=== PATIENT | male | born 1930 | race Caucasian/White ===

== ENCOUNTER 2020-01-31 16:27 | Inpatient (IN) ==
[2020-01-31] MEDS ORDERED: 0.9 % SODIUM CHLORIDE 1,000 ML IV ONE ×2 (16:50→18:58)
[2020-01-31] MEDS ORDERED: BENZONATATE 100 MG CAPSULE PO ONE (16:50)
--- NOTE | 2020-01-31 17:01 | Emergency Department Note ---
Fall HPI General Chief Complaint: Weakness Stated Complaint: N/v/d, weakness, fever Time Seen by Provider: 01/31/20 16:36 Source: EMS Mode of arrival: EMS History of Present Illness HPI Narrative: Narrative: 89-year-old male patient brought into the emergency department via EMS home. Patient mentions he woke up around 11 PM to use the restroom. Was standing up from bed he became dizzy and then went to ground. He does mention striking his arm and shoulder. He was immobile and unable to get himself off the floor. His niece found him on the floor around 1600 today. This equates to approximately 16-17 hours on the floor immobile. Patient does mention that he soiled himself. However his prior to calling 911. Upon arrival, patient complains of mild left shoulder pain. He was noted to be febrile ambulance. However repeat oral temperature in triage was 98.9. Patient was noted to be hypoxic by EMS. He has known COPD and is currently requiring oxygen [id number]. He is currently on 4 L of oxygen via nasal cannula. Juan F randhawa has a considerable nonproductive cough. He denies exposure. He tells me the cough is been present for many years and is unchanged. He is unsure if he hit his head or if there is loss of conscious. ROS: Denies systemic illness, fever, sweats, chills. Denies headaches, tinnitus, or vision changes. Denies runny nose or sinus congestion. Admits to shortness of breath. Denies retrosternal chest pain or palpitations. Denies abdominal pain, nausea, vomiting, or diarrhea. Denies dysuria, hematuria, urinary frequency, or urinary urgency. Admits to generalized weakness. Denies focal weakness. Related Data Home Medications Medication Instructions Recorded Confirmed albuterol sulfate 90 mcg/actuation 2 puff INHALATION .Q4-6H PRN g 01/09/20 01/09/20 aerosol inhaler budesonide-formoterol HFA 160 2 puff INHALATION BID 01/09/20 01/09/20 mcg-4.5 mcg/actuation aerosol inhaler finasteride 5 mg tablet 5 mg PO QDAY 01/09/20 01/09/20 gabapentin 400 mg capsule 400 mg PO BID 01/09/20 01/09/20 ipratropium 0.5 mg-albuterol 3 mg 3 ml INHALATION QID 01/09/20 01/09/20 (2.5 mg base)/3 mL nebulization soln levothyroxine 25 mcg tablet 25 mcg PO QDAY 01/09/20 01/09/20 tamsulosin 0.4 mg capsule 0.4 mg PO QDAY 01/09/20 01/09/20 tiotropium bromide 2.5 2 puff INHALATION QDAY 01/09/20 01/09/20 mcg/actuation mist for inhalation Allergies Allergy/AdvReac Type Severity Reaction Status Date / Time morphine Allergy Unknown Unknown Verified 01/31/20 16:28 oxycodone Allergy Unknown Unknown Verified 01/31/20 16:28 Review of Systems ROS ROS Narrative: Narrative: PFSH Narrative Patient History Narrative: Narrative: Medical/Surgical/Family History All Active Problems (Updated 01/31/20 @ 19:43 by Tyshawn Bynum PA-C) Rhabdomyolysis (Acute) Lab test positive for detection of COVID-19 virus (Acute) History of surgery (Chronic) History of total left knee replacement (Chronic ~1997) History of back surgery (Chronic) Tinnitus, bilateral (Chronic) Spinal stenosis (Chronic) Solitary lung nodule (Chronic) Sleep apnea, unspecified (Chronic) Shoulder pain (Chronic) Shortness of breath (Chronic) Sensorineural hearing loss, bilateral (Chronic) Primary osteoarthritis, unspecified site (Chronic) Peripheral vascular disease (Chronic) Hypothyroidism (Chronic) Hyperlipidemia (Chronic) History of colonoscopy (Chronic) Essential hypertension (Chronic) Diverticular disease of colon (Chronic) Chronic obstructive pulmonary disease, unspecified (Chronic) Chest pain, unspecified (Chronic) Medical History Chest pain, unspecified (Chronic) Chronic obstructive pulmonary disease, unspecified (Chronic) Diverticular disease of colon (Chronic) Essential hypertension (Chronic) Hyperlipidemia (Chronic) Hypothyroidism (Chronic) Peripheral vascular disease (Chronic) Primary osteoarthritis, unspecified site (Chronic) Sensorineural hearing loss, bilateral (Chronic) Shortness of breath (Chronic) Shoulder pain (Chronic) Sleep apnea, unspecified (Chronic) Solitary lung nodule (Chronic) Spinal stenosis (Chronic) Tinnitus, bilateral (Chronic) Surgical History History of back surgery (Chronic) x4 History of colonoscopy (Chronic) History of surgery (Chronic) 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 He is somewhat tachypneic with respiratory rate of 22. His SPO2 is anywhere to 92% on 4 L of oxygen via nasal cannula. His other vital signs are normal.) Head Head: Present normocephalic; Absent atraumatic (Some dried blood noted to right parietal area. No obvious defect or area of trauma noted.) Eye Eye: Present normal appearance, PERRL and EOMI; Absent scleral icterus and conjunctival injection ENT ENT: Present normal oropharynx and mucous membranes moist Neck Neck: Present trachea midline; Absent lymphadenopathy and thyromegaly Chest Chest: Present symmetric chest wall rise Respiratory Respiratory: Present respiratory distress, wheezes, prolonged expiratory phase and decreased breath sounds (Considerable rhonchi heard throughout the chest on exam.); Absent normal lung sounds bilaterally, rales/crackles, stridor and accessory muscle use Cardiovascular Cardiovascular: Present regular rate and normal rhythm; Absent systolic murmur and diastolic murmur Adbominal Abdominal: Present soft; Absent distention, tenderness, guarding, rebound, rigidity, organomegaly and mass Extremities Extremities: Present normal inspection, full ROM and normal capillary refill; Ab sent pedal edema Expanded Upper Extremity Shoulder: Present normal inspection and full ROM; Absent tenderness, swelling, ecchymosis, deformity, crepitus, dislocation, erythema and tenderness over AC joint Back Back: Present normal inspection and full ROM Expanded Neurological Patient oriented to: Present person, place and time Speech: Present fluid speech CRANIAL NERVES: EOM function (II, III, IV, ): Normal, facial sensation (V): Normal, facial palsy (VII): Normal, gag reflex (IX): Normal, spinal accessory function (XI): Normal and tongue deviation (XII): Normal Motor strength - LUE: 5/5 Motor strength - RUE: 5/5 Motor strength - LLE: 5/5 Motor strength - RLE: 5/5 SENSORY EXAM UPPER EXTREMITY: Normal: light touch SENSORY EXAM LOWER EXTREMITY: Normal: light touch DTR: 2+: biceps (L), biceps (R), patellar (L) and patellar (R) Coma Scale Eye Opening: Spontaneous Coma Scale Motor Response: Obeys Commands Coma Scale Verbal Response: Oriented Coma Scale Total: 15 Psychiatric Psychiatric: Present normal affect and normal mood Skin Skin: Present warm (WNL), dry and normal color Course Course Course Narrative: Patient was on the ground for extended period of time (approximate 17 hours) making his risk of rhabdomyolysis. He did have some dizziness prior to falling. I am going to order a CT scan of his head/brain without contrast. I will get radiographs of his affected left shoulder. Laboratory studies will be drawn including a CK level. I will also get an EKG. Urinalysis was also ordered. Patient was given normal saline 1000 mL bolus. I will treat his cough with benzonatate 200 mg p.o. Reevaluation(s) Reevaluation #1: A review of the patient's diagnostics show the following: CBC WBC 7.2, RBC 4.35, hemoglobin 12.9, mag 40.0, platelets 198. Lactic acid 1.1. CMP calcium 8.4, AST 72, all others normal limits. Total CK 2543. Procalcitonin 0.50. Noncontrast head CT scan read as no acute intracranial hemorrhage. Portable chest x-ray showing probable COPD but no acute or focal abnormality. After reviewing all the data I discussed these findings briefly my collaborating physician (Dr. Burns) at this time patient does have evidence of rhabdomyolysis work-up. Patient will need to be admitted to our facility for ongoing care. With this in mind I reached out to our hospitalist (Dr. London) and discussed the case with him. Time: 19:02 Reevaluation #2: At this time Dr. London mentions the patient's total CK, although elevated, is on the lower side of making the diagnosis for r habdomyolysis. He did mention that the patient will likely respond to IV fluid. He did say that the patient could be admitted for observation. However the patient wanted to be discharged home she would likely be safe to do so. Knowing this, I discussed disposition with the patient. At this time patient is feeling weak and not wanting to be discharged if possible. Afterwards, I reached back out to Dr. London and explained that the patient would like to be admitted. At this time Dr. London has consented to see the patient in admission. All further treatment decisions, modalities, and ultimate patient disposition of be carried out by Dr. London. Time: 19:36 Vital Signs Vital signs: Vital Signs Temperature 98.8 F 01/31/20 16:28 Pulse Rate 22 L 01/31/20 16:28 Respiratory Rate 96 H 01/31/20 16:28 Blood Pressure 133/71 01/31/20 16:28 Pulse Oximetry (%) 90 01/31/20 16:28 Temperature 98.8 F 01/31/20 16:28 Pulse Rate 95 H 01/31/20 20:33 Respiratory Rate 22 01/31/20 20:33 Blood Pressure 117/61 01/31/20 20:33 Pulse Oximetry (%) 94 01/31/20 20:33 MDM MDM Narrative Medical decision making narrative: Narrative: Lab Data Lab results reviewed: Yes I reviewed the patient's lab results. Result diagrams: 01/31/20 17:10 01/31/20 17:10 Labs: Lab Results 01/31/20 01/31/20 01/31/20 Range/Units 17:10 17:10 17:10 WBC 7.2 (4.5-11.0) K/mcL RBC 4.35 L (4.50-5.90) M/mcL Hgb 12.9 L (13.5-16.5) g/dL Hct 40.0 L (41.0-55.0) % MCV 92.0 (80.0-100.0) fL MCH 29.7 (26.0-34.0) pg MCHC 32.3 (31.0-36.0) g/dL RDW 13.7 (11.5-14.5) % Plt Count 198 (140-440) K/mcL MPV 9.7 (7.4-10.4) fL Neut % (Auto) 71.1 (38.0-78.0) % Lymph % (Auto) 9.2 L (15.0-49.0) % [place] % (Auto) 17.6 H (1.0-12.0) % Eos % (Auto) 1.7 (0.0-7.0) % Baso % (Auto) 0.4 (0.0-2.0) % Lymph # (Auto) 0.66 L (1.50-4.80) K/mcL [place] # (Auto) 1.26 H (0.10-0.90) K/mcL Eos # (Auto) 0.12 (0.00-0.70) K/mcL Baso # (Auto) 0.03 (0.00-0.20) K/mcL Absolute Neutrophils 5.09 (1.80-8.00) K/mcL VBG Lactic Acid (0.5-2.0) mmol/L Sodium 134 (133-145) mmol/L Potassium 4.5 (3.3-5.1) mmol/L Chloride 96 (96-108) mmol/L Carbon Dioxide 22 (22-30) mmol/L Anion Gap 16.0 (8.0-16.0) BUN 18 (8-23) mg/dL Creatinine 1.1 (0.7-1.2) mg/dL GFR Calculation 59 Glucose 95 (70-105) mg/dL Calcium 8.4 L (8.6-10.4) mg/dL Total Bilirubin 0.4 (0.1-1.0) mg/dL AST 72 H (<40) U/L ALT 20 (<40) U/L Alkaline Phosphatase 78 (39-117) U/L Total Creatine Kinase 2543 H (24-195) U/L CK-MB (CK-2) 3.3 (<6.7) ng/mL Total Protein 6.9 (5.9-8.4) gm/dL Albumin 3.6 (3.2-5.2) gm/dL Globulin 3.3 (2.2-3.7) gm/dL Albumin/Globulin Ratio 1.1 (1.0-2.3) Procalcitonin 0.51 H (<0.10) ng/mL Urine Color Urine Appearance (Clear) Urine pH (5.0-9.0) Ur Specific [place] (1.000-1.035) Urine Protein (Negative) mg/dL Urine Glucose (UA) (Negative) mg/dL Urine Ketones (Negative) mg/dL Urine Occult Blood (Negative) mg/dL Urine Nitrate (Negative) Urine Bilirubin (Negative) mg/dL Urine Urobilinogen mg/dL Ur Leukocyte Esterase (Negative) /ug Urine RBC (0-1) /hpf Urine WBC (0-4) /hpf Ur Squamous Epith Cells (0-4) /hpf Ur Transition Epith Cell (0-2) /hpf Calcium Oxalate Crystal (None) /hpf Urine Bacteria (0) /hpf Hyaline Casts (0-2) /lph Urine Mucus (None) /hpf Ur Culture Indicated? SARS-CoV-2 (PCR) Positive A (Negative) 01/31/20 01/31/20 Range/Units 17:10 18:34 WBC (4.5-11.0) K/mcL RBC (4.50-5.90) M/mcL Hgb (13.5-16.5) g/dL Hct (41.0-55.0) % MCV (80.0-100.0) fL MCH (26.0-34.0) pg MCHC (31.0-36.0) g/dL RDW (11.5-14.5) % Plt Count (140-440) K/mcL MPV (7.4-10.4) fL Neut % (Auto) (38.0-78.0) % Lymph % (Auto) (15.0-49.0) % [place] % (Auto) (1.0-12.0) % Eos % (Auto) (0.0-7.0) % Baso % (Auto) (0.0-2.0) % Lymph # (Auto) (1.50-4.80) K/mcL [place] # (Auto) (0.10-0.90) K/mcL Eos # (Auto) (0.00-0.70) K/mcL Baso # (Auto) (0.00-0.20) K/mcL Absolute Neutrophils (1.80-8.00) K/mcL VBG Lactic Acid 1.1 (0.5-2.0) mmol/L Sodium (133-145) mmol/L Potassium (3.3-5.1) mmol/L Chloride (96-108) mmol/L Carbon Dioxide (22-30) mmol/L Anion Gap (8.0-16.0) BUN (8-23) mg/dL Creatinine (0.7-1.2) mg/dL GFR Calculation Glucose (70-105) mg/dL Calcium (8.6-10.4) mg/dL Total Bilirubin (0.1-1.0) mg/dL AST (<40) U/L ALT (<40) U/L Alkaline Phosphatase (39-117) U/L Total Creatine Kinase (24-195) U/L CK-MB (CK-2) (<6.7) ng/mL Total Protein (5.9-8.4) gm/dL Albumin (3.2-5.2) gm/dL Globulin (2.2-3.7) gm/dL Albumin/Globulin Ratio (1.0-2.3) Procalcitonin (<0.10) ng/mL Urine Color Yellow Urine Appearance Clear (Clear) Urine pH 5.0 (5.0-9.0) Ur Specific [place] 1.021 (1.000-1.035) Urine Protein 30 A (Negative) mg/dL Urine Glucose (UA) Negative (Negative) mg/dL Urine Ketones 20 A (Negative) mg/dL Urine Occult Blood >=1.0 A (Negative) mg/dL Urine Nitrate Negative (Negative) Urine Bilirubin Negative (Negative) mg/dL Urine Urobilinogen Negative mg/dL Ur Leukocyte Esterase Negative (Negative) /ug Urine RBC 3 H (0-1) /hpf Urine WBC 2 (0-4) /hpf Ur Squamous Epith Cells 2 (0-4) /hpf Ur Transition Epith Cell < 1 (0-2) /hpf Calcium Oxalate Crystal Few A (None) /hpf Urine Bacteria None (0) /hpf Hyaline Casts 12 H (0-2) /lph Urine Mucus Few A (None) /hpf Ur Culture Indicated? No SARS-CoV-2 (PCR) (Negative) Radiology Data Radiology results reviewed: Yes I reviewed the patient's radiology results. Radiology results narrative: Ordering Physician: Tyshawn Bynum PA-C Date of Service: 01/31/20 Procedure(s): CT head/brain wo con Accession Number(s): [id number] INDICATION: Fall last night. Unsure if he hit head. ?LOC. COMPARISON: None. TECHNIQUE: Axial noncontrast-enhanced images through the brain. Sagittally and coronally reformatted images. FINDINGS: Cerebral hemispheres:Periventricular white matter abnormality consistent with small vessel ischemic change. Focal area of encephalomalacia in the white matter of the right frontal lobe. This is consistent with focal infarction. This is nonacute No intra-axial hemorrhage. No localized mass effect. Brainstem and cerebellum:No intra-axial abnormality Extra-axial:No acute hemorrhage. No subdural or epidural hematoma. No subarachnoid hemorrhage. Basilar cisterns are normal Calvarial:No calvarial fracture. No lytic lesion Temporal bones are negative. No destructive lesions Soft tissue, orbits, sinuses:Mild inflammatory disease within the right ethmoid sinuses and frontal sinuses. There are rounded densities consistent with retention cysts or polyps IMPRESSION: 1. No acute intracranial hemorrhage 2. 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 Ordering Physician: Tyshawn Bynum PA-C Date of Service: 01/31/20 Procedure(s): XR chest 1V portable Accession Number(s): [id number] INDICATION: dizziness, worsening cough. Hx of COPD. TECHNIQUE: AP portable upright chest x-ray COMPARISON: None FINDINGS: Lungs:Findings consistent with COPD. No focal pulmonary parenchymal infiltrate or mass. Heart, vascular:No significant cardiomegaly. Pulmonary vascularity is normal. No pulmonary edema or pulmonary congestion Mediastinum, soo:No mediastinal widening. No hilar mass Pleura:No pleural fluid. No pleural-based mass or calcification Skeletal:Negative. IMPRESSION: 1. Probable COPD 2. No acute or focal abnormality Interpreted and Authenticated by: Demond Marrero 01/31/20 EKG Data EKG #1: EKG attestation: Yes I reviewed and interpreted this EKG. EKG results narrative: Twelve-lead EKG obtained showing sinus rhythm at a rate of 90. No ST segment changes. No ectopy. Normal intervals. Discharge Plan Patient/Caregiver Discharge Instructions Pt seen by PHARMACY INNOVATION ASSISTANT/PA only: Yes Clinical Impression: Rhabdomyolysis, Chronic obstructive pulmonary disease, unspecified, Lab test positive for detection of COVID-19 virus Patient Disposition: Xfer As Outpt/Obs ([facility]) Condition: Fair Follow up with: Edwin Jones ARNP [Primary Care Provider] - Prescriptions: No Action ipratropium-albuterol 0.5 mg-3 mg(2.5 mg base)/3 mL solution for nebulization 3 ml INHALATION QID RF: 0 albuterol sulfate 90 mcg/actuation HFA aerosol inhaler 2 puff INHALATION .Q4-6H PRN (Reason: Shortness Of Breath) RF: 0 budesonide-formoterol 160-4.5 mcg/actuation HFA aerosol inhaler 2 puff INHALATION BID RF: 0 finasteride 5 mg tablet 5 mg PO QDAY RF: 0 gabapentin 400 mg capsule 400 mg PO BID RF: 0 levothyroxine 25 mcg tablet 25 mcg PO QDAY RF: 0 tamsulosin 0.4 mg capsule 0.4 mg PO QDAY RF: 0 tiotropium bromide 2.5 mcg/actuation mist 2 puff INHALATION QDAY RF: 0
--- NOTE | 2020-01-31 17:41 | XRay Report ---
INDICATION: dizziness, worsening cough. Hx of COPD. TECHNIQUE: AP portable upright chest x-ray COMPARISON: None FINDINGS: Lungs:Findings consistent with COPD. No focal pulmonary parenchymal infiltrate or mass. Heart, vascular:No significant cardiomegaly. Pulmonary vascularity is normal. No pulmonary edema or pulmonary congestion Mediastinum, soo:No mediastinal widening. No hilar mass Pleura:No pleural fluid. No pleural-based mass or calcification Skeletal:Negative. IMPRESSION: 1. Probable COPD 2. No acute or focal abnormality Interpreted and Authenticated by: Demond Marrero 01/31/20
--- NOTE | 2020-01-31 17:44 | Cat Scan Report ---
INDICATION: Fall last night. Unsure if he hit head. ?LOC. COMPARISON: None. TECHNIQUE: Axial noncontrast-enhanced images through the brain. Sagittally and coronally reformatted images. FINDINGS: Cerebral hemispheres:Periventricular white matter abnormality consistent with small vessel ischemic change. Focal area of encephalomalacia in the white matter of the right frontal lobe. This is consistent with focal infarction. This is nonacute No intra-axial hemorrhage. No localized mass effect. Brainstem and cerebellum:No intra-axial abnormality Extra-axial:No acute hemorrhage. No subdural or epidural hematoma. No subarachnoid hemorrhage. Basilar cisterns are normal Calvarial:No calvarial fracture. No lytic lesion Temporal bones are negative. No destructive lesions Soft tissue, orbits, sinuses:Mild inflammatory disease within the right ethmoid sinuses and frontal sinuses. There are rounded densities consistent with retention cysts or polyps IMPRESSION: 1. No acute intracranial hemorrhage 2. 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 Interpreted and Authenticated by: Demond Marrero 01/31/20
[2020-01-31 17:58] LABS: COVID-19 (RAPID/ABBOTT) Positive (Negative)
[2020-01-31 17:59] LABS: Basophils # (Auto) 0.03 K/mcL (0.00-0.20); Basophils % (Auto) 0.4 % (0.0-2.0); Eosinophils # (Auto) 0.12 K/mcL (0.00-0.70); Eosinophils % (Auto) 1.7 % (0.0-7.0); Hemoglobin 12.9 g/dL (13.5-16.5); Lymphocytes # (Auto) 0.66 K/mcL (1.50-4.80); Lymphocytes % (Auto) 9.2 % (15.0-49.0); Mean Corpuscular HGB Conc 32.3 g/dL (31.0-36.0); Mean Platelet Volume 9.7 fL (7.4-10.4); Monocytes # (Auto) 1.26 K/mcL (0.10-0.90); Monocytes % (Auto) 17.6 % (1.0-12.0); Neutrophils % (Auto) 71.1 % (38.0-78.0); Platelet Count 198 K/mcL (140-440); RBC 4.35 M/mcL (4.50-5.90); Red Cell Distribution Width 13.7 % (11.5-14.5); WBC 7.2 K/mcL (4.5-11.0)
[2020-01-31 18:22] LABS: ALT/SGPT 20 U/L (<40); AST/SGOT 72 U/L (<40); Albumin 3.6 gm/dL (3.2-5.2); Albumin/Globulin Ratio 1.1 (1.0-2.3); Alkaline Phosphatase 78 U/L (39-117); Bilirubin,Total 0.4 mg/dL (0.1-1.0); Blood Urea Nitrogen 18 mg/dL (8-23); Calcium 8.4 mg/dL (8.6-10.4); Carbon Dioxide 22 mmol/L (22-30); Chloride 96 mmol/L (96-108); Globulin 3.3 gm/dL (2.2-3.7); Glomerular Filtration Rate 59; Glucose 95 mg/dL (70-105)
[2020-01-31 18:28] LABS: Procalcitonin 0.51 ng/mL (<0.10)
[2020-01-31 18:35] LABS: Creatine Kinase 2543 U/L (24-195); Creatine Kinase MB 3.3 ng/mL (<6.7)
[2020-01-31 19:37] LABS: Appearance,Urine CLEAR (Clear); Bilirubin,Urine Negative (Negative); Calcium Oxalate Crystals,Urine FEW /hpf; Color,Urine YELLOW; Culture Indicated,Urine No; Glucose,Urine (UA) Negative (Negative); Ketones,Urine 20 mg/dL (Negative); Leukocyte Esterase,Urine Negative /ug (Negative); Mucus,Urine FEW /hpf; Nitrate,Urine Negative (Negative); Protein,Urine 30 mg/dL (Negative); Specific Gravity,Urine 1.021 (1.000-1.035); Urine Blood >=1.0 mg/dL (Negative); Urine Hyaline Cast 12 /lph (0-2); Urine RBC 3 /hpf (0-1); Urine Squamous Epithelial Cell 2 /hpf (0-4); Urine Transitional Epi Cells < 1 /hpf (0-2); Urine WBC 2 /hpf (0-4); Urobilinogen,Urine Negative
--- NOTE | 2020-01-31 19:41 | Internal Med History&Physical ---
HPI History of Present Illness Patient information: Note initiated : 01/31/20 at 7:41 pm Service Date, if different from initiated Date: [] Patient: Mathieu Tang a 89 y/o M admitted on for N/v/d, weakness, fever. Chief Complaint: Weakness fall and unable to get up for 18 hours History of present illness: Mr. Tang is a 89 year old M with a history of O2 dependent COPD/neuropathy/BPH and hypothyroidism who lives fairly independently at [place]. The last couple of days patient has been feeling weak. He fell yesterday after he was trying to get to the bathroom got dizzy and landed on the floor. He remained on the floor liters profound weakness and laid there for 17 hours until he was discovered by his niece. He denies thunderclap headache/chest palpitation endorses dizziness lightheadedness. He denies loss of consciousness or incontinence. Endorses to generalized body aches but denies fever. Patient work-up in the ER was consistent with rhabdomyolysis with CK over 2500 and mild EDVIN with creatinine 1.1. Patient was started on crystalloids. He also tested positive for Covid but chest x-ray was negative for acute process Subsequently hospital service was consulted for admission in light of profound weakness/acute viral COVID-19 syndrome/rhabdomyolysis. At the time of my evaluation patient is alert and oriented. He denies active distress. He denies pain but complains of frequent coughing which is consistent with his COPD. He denies diarrhea, dysuria, joint swelling or rash Review of systems 10 point review system was performed and is negative except for ones cussed above PFSH PFSH All Active Problems (Updated 01/31/20 @ 19:43 by Tyshawn Bynum PA-C) Rhabdomyolysis (Acute) Lab test positive for detection of COVID-19 virus (Acute) History of surgery (Chronic) History of total left knee replacement (Chronic ~1997) History of back surgery (Chronic) Tinnitus, bilateral (Chronic) Spinal stenosis (Chronic) Solitary lung nodule (Chronic) Sleep apnea, unspecified (Chronic) Shoulder pain (Chronic) Shortness of breath (Chronic) Sensorineural hearing loss, bilateral (Chronic) Primary osteoarthritis, unspecified site (Chronic) Peripheral vascular disease (Chronic) Hypothyroidism (Chronic) Hyperlipidemia (Chronic) History of colonoscopy (Chronic) Essential hypertension (Chronic) Diverticular disease of colon (Chronic) Chronic obstructive pulmonary disease, unspecified (Chronic) Chest pain, unspecified (Chronic) Medical History Chest pain, unspecified (Chronic) Chronic obstructive pulmonary disease, unspecified (Chronic) Diverticular disease of colon (Chronic) Essential hypertension (Chronic) Hyperlipidemia (Chronic) Hypothyroidism (Chronic) Peripheral vascular disease (Chronic) Primary osteoarthritis, unspecified site (Chronic) Sensorineural hearing loss, bilateral (Chronic) Shortness of breath (Chronic) Shoulder pain (Chronic) Sleep apnea, unspecified (Chronic) Solitary lung nodule (Chronic) Spinal stenosis (Chronic) Tinnitus, bilateral (Chronic) Surgical History History of back surgery (Chronic) x4 History of colonoscopy (Chronic) History of surgery (Chronic) 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) Family History Father Congestive heart failure Brother Cancer of kidney Social History (Updated 01/09/20 @ 20:08 by Elsi Portillo) marital status: service: Yes occupational status: retired occupation: Construction smoking status: Former smoker alcohol intake frequency: a few times a month MEDS/ALLERGIES Home Medications and Allergies Home Medications Medication Instructions Recorded Confirmed Type albuterol sulfate 90 mcg/actuation 2 puff INHALATION .Q4-6H PRN g 01/09/20 01/31/20 History aerosol inhaler budesonide-formoterol HFA 160 2 puff INHALATION BID 01/09/20 01/31/20 History mcg-4.5 mcg/actuation aerosol inhaler finasteride 5 mg tablet 5 mg PO QDAY 01/09/20 01/31/20 History gabapentin 400 mg capsule 400 mg PO BID 01/09/20 01/31/20 History ipratropium 0.5 mg-albuterol 3 mg 3 ml INHALATION QID 01/09/20 01/31/20 History (2.5 mg base)/3 mL nebulization soln levothyroxine 25 mcg tablet 25 mcg PO QDAY 01/09/20 01/31/20 History tamsulosin 0.4 mg capsule 0.4 mg PO QDAY 01/09/20 01/31/20 History tiotropium bromide 2.5 2 puff INHALATION QDAY 01/09/20 01/31/20 History mcg/actuation mist for inhalation Allergies Allergy/AdvReac Type Severity Reaction Status Date / Time oxycodone Allergy Intermediate Confusion Verified 01/31/20 23:38 morphine Allergy Mild Hives Verified 01/31/20 23:38 EXAM Constitutional Vitals: Temp Pulse Resp BP Pulse Ox 98.8 F 95 H 19 121/80 89 L 01/31/20 16:28 01/31/20 19:32 01/31/20 19:32 01/31/20 19:32 01/31/20 19:32 Anxious but alert Head normocephalic Oral cavity moist No ear nose discharge Eye movement symmetrical Neck supple no lymphadenopathy S1-S2 regular ESM grade 1 Minimally labored breathing on 2 L oxygen Nondistended nontender abdomen Lower extremity no cyanosis clubbing or joint swelling Skin no suspicious lesion Psych no hallucination Neuro normal higher function, symmetrical strength DATA Data Completed and Pending Labs: Labs from last 24 hours 01/31/20 01/31/20 01/31/20 18:34 17:10 17:10 WBC RBC Hgb Hct MCV MCH MCHC RDW Plt Count MPV Neut % (Auto) Lymph % (Auto) [place] % (Auto) Eos % (Auto) Baso % (Auto) Lymph # (Auto) [place] # (Auto) Eos # (Auto) Baso # (Auto) Absolute Neutrophils VBG Lactic Acid 1.1 Sodium Potassium Chloride Carbon Dioxide Anion Gap BUN Creatinine GFR Calculation Glucose Calcium Total Bilirubin AST ALT Alkaline Phosphatase Total Creatine Kinase CK-MB (CK-2) Total Protein Albumin Globulin Albumin/Globulin Ratio Procalcitonin 0.51 H Urine Color Yellow Urine Appearance Clear Urine pH 5.0 Ur Specific [place] 1.021 Urine Protein 30 A Urine Glucose (UA) Negative Urine Ketones 20 A Urine Occult Blood >=1.0 A Urine Nitrate Negative Urine Bilirubin Negative Urine Urobilinogen Negative Ur Leukocyte Esterase Negative Urine RBC 3 H Urine WBC 2 Ur Squamous Epith Cells 2 Ur Transition Epith Cell < 1 Calcium Oxalate Crystal Few A Urine Bacteria None Hyaline Casts 12 H Urine Mucus Few A Ur Culture Indicated? No SARS-CoV-2 (PCR) Positive A 01/31/20 01/31/20 17:10 17:10 WBC 7.2 RBC 4.35 L Hgb 12.9 L Hct 40.0 L MCV 92.0 MCH 29.7 MCHC 32.3 RDW 13.7 Plt Count 198 MPV 9.7 Neut % (Auto) 71.1 Lymph % (Auto) 9.2 L [place] % (Auto) 17.6 H Eos % (Auto) 1.7 Baso % (Auto) 0.4 Lymph # (Auto) 0.66 L [place] # (Auto) 1.26 H Eos # (Auto) 0.12 Baso # (Auto) 0.03 Absolute Neutrophils 5.09 VBG Lactic Acid Sodium 134 Potassium 4.5 Chloride 96 Carbon Dioxide 22 Anion Gap 16.0 BUN 18 Creatinine 1.1 GFR Calculation 59 Glucose 95 Calcium 8.4 L Total Bilirubin 0.4 AST 72 H ALT 20 Alkaline Phosphatase 78 Total Creatine Kinase 2543 H CK-MB (CK-2) 3.3 Total Protein 6.9 Albumin 3.6 Globulin 3.3 Albumin/Globulin Ratio 1.1 Procalcitonin Urine Color Urine Appearance Urine pH Ur Specific [place] Urine Protein Urine Glucose (UA) Urine Ketones Urine Occult Blood Urine Nitrate Urine Bilirubin Urine Urobilinogen Ur Leukocyte Esterase Urine RBC Urine WBC Ur Squamous Epith Cells Ur Transition Epith Cell Calcium Oxalate Crystal Urine Bacteria Hyaline Casts Urine Mucus Ur Culture Indicated? SARS-CoV-2 (PCR) A/P Narrative A/P Narrative: * Rhabdomyoslysis secondary to fall. Continue crystalloid/CK follow-up/monitor renal function/electrolytes. * COVID -19 Acute Viral Syndrome with weakness. Monitor for worsening hypoxemia, follow inflammatory markers * Fall secondary to acute viral syndrome from Covid. Continue therapy/nutrition support/gait and safety eval * History of COPD at baseline. On 2 L oxygen, continue bronchodilators. * Neuropathy can to gabapentin * BPH continue tamsulosin * Hypothyroidism continue thyroxine * Full code * Prophylaxis heparin Plan * Observation admit * Supportive management * Dexamethasone, remdesivir if worsening hypoxemia * Crystalloids/CK levels * Monitor renal function/electrolytes * Pre-existing medical condition management home meds * Nutrition support/therapies Time Spent With Patient Time: Total time spent is greater than 50% in coordination of care (as documented) at patient's floor/unit and/or counseling patient:
[2020-01-31] MEDS ORDERED: POTASSIUM CHLORIDE 20 MEQ PACKET PO PRN (21:15)
[2020-01-31] MEDS ORDERED: POTASSIUM CHLORIDE 40 MEQ in DEXTROSE 5% IN WATER 500 ML IV PRN (21:15)
[2020-01-31] MEDS ORDERED: METOPROLOL TARTRATE 5 MG/5 ML VIAL IV PRN (21:15)
[2020-01-31] MEDS ORDERED: BISACODYL 10 MG SUPP.RECT PR PRN (21:15)
[2020-01-31] MEDS ORDERED: POLYETHYLENE GLYCOL 3350 17 GM PACKET PO PRN (21:15)
[2020-01-31] MEDS ORDERED: ACETAMINOPHEN 650 MG/65 ML BAG IV PRN (21:15)
[2020-01-31] MEDS ORDERED: hydrALAZINE 20 MG/ML VIAL IV PRN (21:15)
[2020-01-31] MEDS ORDERED: BUDESONIDE FORMOTEROL INHALATION SCH (21:15)
[2020-01-31] MEDS ORDERED: ONDANSETRON 4 MG/2 ML VIAL IV PRN (21:15)
[2020-01-31] MEDS ORDERED: ONDANSETRON 4 MG ODT TABLET SL PRN (21:15)
[2020-01-31] MEDS ORDERED: MAGNESIUM SULFATE 2 GM/50 ML BAG IV PRN (21:15)
[2020-01-31] MEDS: 0.9 % SODIUM CHLORIDE 1,000 ML IV SCH (21:35)
[2020-01-31] MEDS: 0.9 % SODIUM CHLORIDE 10 ML SYRINGE IV SCH (21:49)
[2020-01-31] MEDS ORDERED: IPRATROPIUM/ALBUTEROL 3 ML AMPUL.NEB NEB ONE (21:49)
[2020-01-31] MEDS: IPRATROPIUM/ALBUTEROL 3 ML AMPUL.NEB NEB SCH (21:51)
[2020-01-31] MEDS: cefTRIAXone 2 GM in DEXTROSE 5% IN WATER 50 ML IV SCH (22:40)
[2020-01-31] MEDS: MELATONIN 3 MG TABLET PO PRN (22:43)
[2020-01-31] MEDS: CYANOCOBALAMIN (VITAMIN B-12) 500 MCG TABLET PO SCH (22:43)
[2020-01-31] MEDS: SENNOSIDES/DOCUSATE SODIUM 1 TAB TABLET PO SCH (22:43)
[2020-01-31] MEDS: GABAPENTIN 400 MG CAPSULE PO SCH (22:43)
[2020-01-31] MEDS: HEPARIN 5,000 UNIT/ML VIAL SQ SCH (22:44)
[2020-01-31] MEDS: DOCUSATE SODIUM 100 MG CAPSULE PO SCH (22:44)
[2020-01-31 23:26] LABS: Creatine Kinase 2859 U/L (24-195)
[2020-02-01] MEDS: 0.9 % SODIUM CHLORIDE 10 ML SYRINGE IV SCH ×3 (06:09→22:32)
[2020-02-01 06:24] LABS: Basophils # (Auto) 0.02 K/mcL (0.00-0.20); Basophils % (Auto) 0.3 % (0.0-2.0); Eosinophils # (Auto) 0 K/mcL (0.00-0.70); Eosinophils % (Auto) 0 % (0.0-7.0); Hematocrit 37.2 % (41.0-55.0); Hemoglobin 11.7 g/dL (13.5-16.5); Lymphocytes # (Auto) 0.78 K/mcL (1.50-4.80); Mean Cell Volume 93.9 fL (80.0-100.0); Mean Corpuscular HGB Conc 31.5 g/dL (31.0-36.0); Mean Platelet Volume 9.9 fL (7.4-10.4); Monocytes # (Auto) 0.87 K/mcL (0.10-0.90); Monocytes % (Auto) 14.5 % (1.0-12.0); Neutrophils % (Auto) 72.2 % (38.0-78.0); Platelet Count 162 K/mcL (140-440); RBC 3.96 M/mcL (4.50-5.90); Red Cell Distribution Width 13.8 % (11.5-14.5)
[2020-02-01] MEDS: IPRATROPIUM/ALBUTEROL 3 ML AMPUL.NEB NEB SCH ×6 (06:25→23:44)
[2020-02-01] MEDS: LEVOTHYROXINE 25 MCG TABLET PO SCH (07:09)
[2020-02-01 07:13] LABS: ALT/SGPT 25 U/L (<40); AST/SGOT 104 U/L (<40); Albumin 3.3 gm/dL (3.2-5.2); Albumin/Globulin Ratio 1.1 (1.0-2.3); Alkaline Phosphatase 67 U/L (39-117); Bilirubin,Direct < 0.2 mg/dL (<0.3); Bilirubin,Total 0.2 mg/dL (0.1-1.0); Blood Urea Nitrogen 17 mg/dL (8-23); Carbon Dioxide 26 mmol/L (22-30); Chloride 97 mmol/L (96-108); Glomerular Filtration Rate 67; Glucose 75 mg/dL (70-105); Lactate Dehydrogenase 297 U/L (135-225); Triglycerides 54 mg/dL (<150)
[2020-02-01 07:36] LABS: Creatine Kinase 2894 U/L (24-195)
[2020-02-01] MEDS: MULTIVIT,THER IRON,CA,FA & MIN 1 TABLET PO SCH (08:22)
[2020-02-01] MEDS: ACETAMINOPHEN 325 MG TABLET PO PRN ×2 (08:22→21:21)
[2020-02-01] MEDS: CYANOCOBALAMIN (VITAMIN B-12) 500 MCG TABLET PO SCH ×2 (08:22→21:21)
[2020-02-01] MEDS: FINASTERIDE 5 MG TABLET PO SCH (08:23)
[2020-02-01] MEDS: DEXAMETHASONE 4 MG TABLET PO SCH (08:23)
[2020-02-01] MEDS: GABAPENTIN 400 MG CAPSULE PO SCH ×2 (08:23→21:20)
[2020-02-01] MEDS: TAMSULOSIN 0.4 MG CAPSULE PO SCH (08:23)
[2020-02-01] MEDS: HEPARIN 5,000 UNIT/ML VIAL SQ SCH ×2 (08:24→21:18)
[2020-02-01] MEDS: DOCUSATE SODIUM 100 MG CAPSULE PO SCH ×2 (08:24→21:20)
--- NOTE | 2020-02-01 09:14 | Internal Med Progress Note ---
SUBJECTIVE Subjective Patient information: Note initiated : 02/01/20 at 9:10 am Service Date, if different from initiated Date: [] Patient: Mathieu Tang 89 y/o M admitted on 01/31/20 for N/v/d, weakness, fever. Chief Complaint: History of present illness: Mr. Tang is a 89 year old M with a history of O2 dependent COPD/neuropathy/BPH and hypothyroidism who lives fairly independently at [place]. The last couple of days patient has been feeling weak. He fell yesterday after he was trying to get to the bathroom got dizzy and landed on the floor. He remained on the floor liters profound weakness and laid there for 17 hours until he was discovered by his niece. He denies thunderclap headache/chest palpitation endorses dizziness lightheadedness. He denies loss of consciousness or incontinence. Endorses to generalized body aches but denies fever. Patient work-up in the ER was consistent with rhabdomyolysis with CK over 2500 and mild EDVIN with creatinine 1.1. Patient was started on crystalloids. He also tested positive for Covid but chest x-ray was negative for acute process Subsequently hospital service was consulted for admission in light of profound weakness/acute viral COVID-19 syndrome/rhabdomyolysis. At the time of my evaluation patient is alert and oriented. He denies active distress. He denies pain but complains of frequent coughing which is consistent with his COPD. He denies diarrhea, dysuria, joint swelling or rash 01/31-patient does not feel well this morning. Overnight febrile. T-max 101. Started on remdesivir. Repeat chest imaging. CK plateaued at 2894, CRP 10. Continue dexamethasone. Supplemental oxygen. COVID-19 precautions. Constitutional Vitals: Vital Signs Temp Pulse Resp BP Pulse Ox 100.5 F H 86 22 135/66 96 02/01/20 09:07 02/01/20 07:00 02/01/20 07:16 02/01/20 07:00 02/01/20 07:16 Period Temp Pulse Resp BP Sys/[place] Pulse Ox Last 24 Hr 98.8 F-100.5 F 22-102 12-96 93-135/49-99 89-100 Intake and Output 01/31/20 02/01/20 02/01/20 21:59 05:59 13:59 Intake Total 1999 290 Output Total 350 Balance 1999 Weight 76.204 kg alert oriented No anxiety On 2 L oxygen Minimal labored breathing Intake & Output: Intake & Output 01/31/20 02/01/20 02/01/20 21:59 05:59 13:59 Intake Total 1999 290 Output Total 350 Balance 1999 Weight 76.204 kg Intake: IV 1999 50 Sodium Chloride 0.9% 1,000 ml @ 2000 Wide Open IV BOLUS ONE Rx#: [id number] Rocephin 2 gm In Dextrose 5% in 50 Water 50 ml @ 100 mls/hr IV Q24H [facility] Rx#:[id number] Oral 240 Output: Void Amount 350 Other: Urine Appearance Clear Clear Urine Color Dark Yellow Straw Urine Odor Strong Normal OBJ DATA Labs CBC & Chem 7: 02/01/20 05:34 02/01/20 05:34 Labs: Abnormal Lab Results 02/01/20 02/01/20 02/01/20 05:34 05:34 05:34 RBC 3.96 L Hgb 11.7 L Hct 37.2 L Lymph % (Auto) 13.0 L [place] % (Auto) 14.5 H Lymph # (Auto) 0.78 L [place] # (Auto) D-Dimer 1.45 H Sodium 132 L Calcium 8.0 L AST 104 H Lactate Dehydrogenase 297 H Total Creatine Kinase 2894 H C-Reactive Protein 10.00 H Procalcitonin Urine Protein Urine Ketones Urine Occult Blood Urine RBC Calcium Oxalate Crystal Hyaline Casts Urine Mucus SARS-CoV-2 (PCR) 01/31/20 01/31/20 01/31/20 21:41 18:34 17:10 RBC Hgb Hct Lymph % (Auto) [place] % (Auto) Lymph # (Auto) [place] # (Auto) D-Dimer Sodium Calcium AST Lactate Dehydrogenase Total Creatine Kinase 2859 H C-Reactive Protein Procalcitonin 0.51 H Urine Protein 30 A Urine Ketones 20 A Urine Occult Blood >=1.0 A Urine RBC 3 H Calcium Oxalate Crystal Few A Hyaline Casts 12 H Urine Mucus Few A SARS-CoV-2 (PCR) Positive A 01/31/20 01/31/20 17:10 17:10 RBC 4.35 L Hgb 12.9 L Hct 40.0 L Lymph % (Auto) 9.2 L [place] % (Auto) 17.6 H Lymph # (Auto) 0.66 L [place] # (Auto) 1.26 H D-Dimer Sodium Calcium 8.4 L AST 72 H Lactate Dehydrogenase Total Creatine Kinase 2543 H C-Reactive Protein Procalcitonin Urine Protein Urine Ketones Urine Occult Blood Urine RBC Calcium Oxalate Crystal Hyaline Casts Urine Mucus SARS-CoV-2 (PCR) Meds: Medications Acetaminophen (Tylenol) 650 mg PO Q4-6HP PRN; Protocol PRN Reason: Per Pain Protocol/Fever > 101 Last Admin: 02/01/20 08:22 Dose: 650 mg Documented by: Albuterol Sulfate (Ventolin) 2 puff INH Q4-6HP PRN PRN Reason: Shortness Of Breath Albuterol/Ipratropium (Duoneb) 3 ml NEB QID [facility] Last Admin: 02/01/20 07:42 Dose: Not Given Documented by: Bisacodyl (Dulcolax) 10 mg [place] Q2-3DAYS PRN PRN Reason: Constipation Cyanocobalamin (Vitamin B-12) 1,000 mcg PO BID [facility] Stop: 02/05/20 09:01 Last Admin: 02/01/20 08:22 Dose: 1,000 mcg Documented by: Dexamethasone (Decadron) 6 mg PO DAILY [facility] Last Admin: 02/01/20 08:23 Dose: 6 mg Documented by: Docusate Sodium (Colace) 100 mg PO BID [facility] Last Admin: 02/01/20 08:24 Dose: 100 mg Documented by: Finasteride (Proscar) 5 mg PO QDAY [facility] Last Admin: 02/01/20 08:23 Dose: 5 mg Documented by: Gabapentin (Neurontin) 400 mg PO BID [facility] Last Admin: 02/01/20 08:23 Dose: 400 mg Documented by: Heparin Sodium (Porcine) (Heparin) 5,000 unit SQ Q12 [facility] Last Admin: 02/01/20 08:24 Dose: 5,000 unit Documented by: Hydralazine HCl (Apresoline) 10 mg IV Q4-6HP PRN PRN Reason: Hypertension Potassium Chloride 40 meq/ (Dextrose) 520 mls @ 130 mls/hr IV UD PRN PRN Reason: K+ = or < 3.5 Acetaminophen (Ofirmev) 650 mg in 65 mls @ 130 mls/hr IV Q6HP PRN; Protocol PRN Reason: Per Pain Protocol/Fever > 101 Magnesium Sulfate (Magnesium Sulfate) 2 gm in 50 mls @ 50 mls/hr IV UD PRN PRN Reason: MG = or < 1.7 Ceftriaxone Sodium 2 gm/ (Dextrose) 50 mls @ 100 mls/hr IV Q24H [facility]; Protocol Last Infusion: 01/31/20 23:15 Dose: Infused Documented by: Sodium Chloride (Sodium Chloride 0.9%) 1,000 mls @ 50 mls/hr IV .Q20H [facility] Stop: 02/03/20 09:14 Last Admin: 01/31/20 21:35 Dose: 50 mls/hr Documented by: REMDESIVIR 200 mg/ Sodium (Chloride) 250 mls @ 500 mls/hr IV ONCE ONE Stop: 02/01/20 10:29 REMDESIVIR 100 mg/ Sodium (Chloride) 250 mls @ 500 mls/hr IV DAILY@1000 [place]IMBERLY Stop: 02/05/20 10:29 Iron Carb/Multivit/[place]/Folic Acid (Multivitamin W/Minerals) 1 tab PO DAILY [facility] Last Admin: 02/01/20 08:22 Dose: 1 tab Documented by: Levothyroxine Sodium (Synthroid) 25 mcg PO QAMAC [facility] Last Admin: 02/01/20 07:09 Dose: 25 mcg Documented by: Melatonin (Melatonin 3mg Tablet) 3 mg PO HSP PRN PRN Reason: Insomnia Last Admin: 01/31/20 22:43 Dose: 3 mg Documented by: Metoprolol Tartrate (Lopressor) 5 mg IV Q5M PRN PRN Reason: Heart Rate > 140 bpm Ondansetron HCl (Zofran Odt) 4 mg SL Q4-6HP PRN; Protocol PRN Reason: Nausea And Vomiting Ondansetron HCl (Zofran) 4 mg IV Q4-6HP PRN; Protocol PRN Reason: Nausea And Vomiting Tiotropium [place] (Respimat Inhaler) 2 dose INH QDAY [facility] Budesonide- (Formoterol Inhaler) 2 dose INH BID [facility] Polyethylene Glycol (Miralax) 17 gm PO DAILYP PRN PRN Reason: Constipation Potassium Chloride (Klor-Con) 40 meq PO DAILYP PRN PRN Reason: K+ < 3.5 Senna/Docusate Sodium (Senna Plus Tablet) 1 tab PO HS [facility] Last Admin: 01/31/20 22:43 Dose: 1 tab Documented by: Sodium Chloride (Saline Flush) 10 ml IV Q8 [facility] Last Admin: 02/01/20 06:09 Dose: Not Given Documented by: Tamsulosin HCl (Flomax) 0.4 mg PO QDAY [facility] Last Admin: 02/01/20 08:23 Dose: 0.4 mg Documented by: A/P Narrative A/P Narrative: * Rhabdomyoslysis secondary to fall. CK improving. Renal function stable. Continue crystalloids * COVID -19 Acute Viral Syndrome with weakness. Febrile along with worsening weakness. Repeat chest imaging. Start remdesivir's, continue dexamethasone. * Fall secondary to acute viral syndrome/weakness from Covid. Continue therapy/nutrition support/gait and safety eval * History of COPD at baseline. Continue bronchodilators/oxygen * Neuropathy continue home dose gabapentin * BPH on tamsulosin * Hypothyroidism continue thyroxine * Full code * Prophylaxis heparin Plan * Start remdesivir * Repeat imaging, check ABG if worsening hypoxemia * Continue crystalloids * Dexamethasone * Monitor renal function/electrolytes * Pre-existing medical condition management home meds * Nutrition support/therapies Time Spent With Patient Time: Total time spent is greater than 50% in coordination of care (as documented) at patient's floor/unit and/or counseling patient: QUALITY Stroke Symptom Onset Unknown: No VTE Deep Vein Thrombosis/Pulmonary Embolism Present on Admission: No
--- NOTE | 2020-02-01 09:37 | XRay Report ---
INDICATION: SOB fever TECHNIQUE: AP portable semiupright chest x-ray COMPARISON: None FINDINGS: Lungs:Mild bibasilar pulmonary parenchymal density, left worse than right. Small focal area of pneumonia is possible. Follow-up radiographs recommended. Mid and upper lungs are negative Heart, vascular:No significant cardiomegaly. Pulmonary vascularity is normal. No pulmonary edema or pulmonary congestion Mediastinum, soo:No mediastinal widening. No hilar mass Pleura:No pleural fluid. No pleural-based mass or calcification Skeletal:Negative. IMPRESSION: 1. Mild bibasilar infiltrate 2. Otherwise negative chest x-ray Interpreted and Authenticated by: Demond Marrero 02/01/20
[2020-02-01] MEDS: BUDESONIDE FORMOTEROL INH SCH ×2 (09:50→21:24)
[2020-02-01] MEDS: TIOTROPIUM BROMIDE RESPIMAT INH SCH (09:50)
[2020-02-01] MEDS ORDERED: REMDESIVIR 200 MG in 0.9 % SODIUM CHLORIDE 250 ML IV ONE (10:00)
[2020-02-01] MEDS: ALBUTEROL SULFATE 200 PUFF INHALER INH PRN ×2 (14:35→16:27)
[2020-02-01] MEDS: cefTRIAXone 2 GM in DEXTROSE 5% IN WATER 50 ML IV SCH (14:35)
[2020-02-01] MEDS: METHOCARBAMOL 750 MG TABLET PO PRN (16:27)
[2020-02-01] MEDS: 0.9 % SODIUM CHLORIDE 1,000 ML IV SCH ×2 (16:31→19:00)
[2020-02-01] MEDS: SENNOSIDES/DOCUSATE SODIUM 1 TAB TABLET PO SCH (21:20)
[2020-02-02] MEDS: MELATONIN 3 MG TABLET PO PRN (00:20)
[2020-02-02] MEDS: METHOCARBAMOL 750 MG TABLET PO PRN (03:34)
[2020-02-02] MEDS: 0.9 % SODIUM CHLORIDE 10 ML SYRINGE IV SCH ×3 (05:19→22:05)
[2020-02-02 07:14] LABS: Basophils # (Auto) 0 K/mcL (0.00-0.20); Basophils % (Auto) 0 % (0.0-2.0); Eosinophils # (Auto) 0 K/mcL (0.00-0.70); Eosinophils % (Auto) 0 % (0.0-7.0); Lymphocytes # (Auto) 0.38 K/mcL (1.50-4.80); Lymphocytes % (Auto) 8.7 % (15.0-49.0); Mean Cell Volume 90.2 fL (80.0-100.0); Mean Corpuscular HGB Conc 32.4 g/dL (31.0-36.0); Mean Platelet Volume 10.5 fL (7.4-10.4); Monocytes # (Auto) 0.58 K/mcL (0.10-0.90); Monocytes % (Auto) 13.2 % (1.0-12.0); Neutrophils % (Auto) 78.1 % (38.0-78.0); Platelet Count 147 K/mcL (140-440); RBC 3.77 M/mcL (4.50-5.90); Red Cell Distribution Width 13.3 % (11.5-14.5); WBC 4.4 K/mcL (4.5-11.0)
[2020-02-02] MEDS: LEVOTHYROXINE 25 MCG TABLET PO SCH (07:32)
[2020-02-02] MEDS: FINASTERIDE 5 MG TABLET PO SCH (08:16)
[2020-02-02] MEDS: DEXAMETHASONE 4 MG TABLET PO SCH (08:16)
[2020-02-02] MEDS: DOCUSATE SODIUM 100 MG CAPSULE PO SCH ×2 (08:16→22:15)
[2020-02-02] MEDS: GABAPENTIN 400 MG CAPSULE PO SCH ×2 (08:16→22:15)
[2020-02-02] MEDS: MULTIVIT,THER IRON,CA,FA & MIN 1 TABLET PO SCH (08:16)
[2020-02-02] MEDS: cefTRIAXone 2 GM in DEXTROSE 5% IN WATER 50 ML IV SCH (08:17)
[2020-02-02] MEDS: BUDESONIDE FORMOTEROL INH SCH ×2 (08:17→22:20)
[2020-02-02] MEDS: TIOTROPIUM BROMIDE RESPIMAT INH SCH (08:17)
[2020-02-02] MEDS: HEPARIN 5,000 UNIT/ML VIAL SQ SCH ×2 (08:17→22:15)
[2020-02-02 08:18] LABS: ALT/SGPT 30 U/L (<40); AST/SGOT 90 U/L (<40); Albumin 3.1 gm/dL (3.2-5.2); Albumin/Globulin Ratio 1.1 (1.0-2.3); Alkaline Phosphatase 58 U/L (39-117); Bilirubin,Direct < 0.2 mg/dL (<0.3); Bilirubin,Total 0.2 mg/dL (0.1-1.0); Blood Urea Nitrogen 22 mg/dL (8-23); Calcium 8.1 mg/dL (8.6-10.4); Carbon Dioxide 26 mmol/L (22-30); Chloride 98 mmol/L (96-108); Globulin 2.8 gm/dL (2.2-3.7); Glomerular Filtration Rate 79; Glucose 128 mg/dL (70-105); Lactate Dehydrogenase 265 U/L (135-225); Phosphorous 2.9 mg/dL (2.5-4.5); Triglycerides 41 mg/dL (<150); Uric Acid 4.6 mg/dL (2.5-8.0)
--- NOTE | 2020-02-02 08:40 | XRay Report ---
INDICATION: Interval Change TECHNIQUE: AP portable upright chest x-ray COMPARISON: Previous chest x-rays dated 02/01/2020 and 01/31/2020 FINDINGS: Lungs:Lungs are negative. No focal pulmonary parenchymal infiltrate or mass. Previous examination was suspicious for possible mild bibasilar infiltrate or volume loss. Lung bases appear at this time. Heart, vascular:No significant cardiomegaly. Pulmonary vascularity is normal. No pulmonary edema or pulmonary congestion Mediastinum, soo:No mediastinal widening. No hilar mass Pleura:No pleural fluid. No pleural-based mass or calcification Skeletal:Negative. IMPRESSION: Negative AP chest x-ray Interpreted and Authenticated by: Demond Marrero 02/02/20
[2020-02-02] MEDS: TAMSULOSIN 0.4 MG CAPSULE PO SCH (08:45)
[2020-02-02] MEDS: IPRATROPIUM/ALBUTEROL 3 ML AMPUL.NEB NEB SCH ×4 (08:45→21:06)
[2020-02-02] MEDS: CYANOCOBALAMIN (VITAMIN B-12) 500 MCG TABLET PO SCH ×2 (08:45→22:15)
[2020-02-02] MEDS: REMDESIVIR 100 MG in 0.9 % SODIUM CHLORIDE 250 ML IV SCH (10:05)
--- NOTE | 2020-02-02 10:12 | Internal Med Progress Note ---
SUBJECTIVE Subjective Patient information: Note initiated : 02/02/20 at 10:05 am Service Date, if different from initiated Date: [] Patient: Mathieu Tang a 89 y/o M admitted on 01/31/20 for N/v/d, weakness, fever. Chief Complaint: [] Interval history: History of present illness: Mr. Tang is a 89 year old M with a history of O2 dependent COPD/neuropathy/BPH and hypothyroidism who lives fairly independently at [facility]. The last couple of days patient has been feeling weak. He fell yesterday after he was trying to get to the bathroom got dizzy and landed on the floor. He remained on the floor liters profound weakness and laid there for 17 hours until he was discovered by his niece. He denies thunderclap headache/chest palpitation endorses dizziness lightheadedness. He denies loss of consciousness or incontinence. Endorses to generalized body aches but denies fever. Patient work-up in the ER was consistent with rhabdomyolysis with CK over 2500 and mild EDVIN with creatinine 1.1. Patient was started on crystalloids. He also tested positive for Covid but chest x-ray was negative for acute process Subsequently hospital service was consulted for admission in light of profound weakness/acute viral COVID-19 syndrome/rhabdomyolysis. At the time of my evaluation patient is alert and oriented. He denies active distress. He denies pain but complains of frequent coughing which is consistent with his COPD. He denies diarrhea, dysuria, joint swelling or rash 01/31-patient does not feel well this morning. Overnight febrile. T-max 101. Started on remdesivir. Repeat chest imaging. CK plateaued at 2894, CRP 10. Continue dexamethasone. Supplemental oxygen. COVID-19 precautions. 02/01-patient doing well. Complains of restless leg. No overnight events., Normal white count 4.4. Sodium 136, Rhabdomyolysis resolved. Creatinine 0.8. On remdesivir day 03/28. Tolerating diet. No additional concerns expressed with nursing staff. On 2 L oxygen nasal cannula. Interval chest imaging bibasilar infiltrates resolved. Constitutional Vitals: vital Signs Temp Pulse Resp BP Pulse Ox 96.9 F L 68 18 117/89 95 02/02/20 06:54 02/02/20 06:54 02/02/20 07:39 02/02/20 06:54 02/02/20 07:39 Period Temp Pulse Resp BP Sys/Mckeon Pulse Ox Last 24 Hr 95.8 F-97.5 F 66-84 117-162/65-89 95-98 Intake and Output 02/01/20 02/02/20 02/02/20 21:59 05:59 13:59 Intake Total 2070 400 300 Output Total 1150 345 200 Balance 920 55 100 Weight 78.744 kg Alert and oriented No anxiety Nonlabored breathing Intake & Output: Intake & Output 02/01/20 02/02/20 02/02/20 21:59 05:59 13:59 Intake Total 2070 400 300 Output Total 1150 345 200 Balance 920 55 100 Weight 78.744 kg Intake: IV 1050 Sodium Chloride 0.9% 1,000 ml @ 1000 50 mls/hr IV .Q20H KIMBERLY Rx#: [id number] Rocephin 2 gm In Dextrose 5% in 50 Water 50 ml @ 100 mls/hr IV Q24H KIMBERLY Rx#:[id number] Oral 1020 400 300 Output: Void Amount 1150 275 200 Emesis 70 Other: Meal Dinner Breakfast Percent of Meal Consumed 50% 50% Feeding Ability Independent Urine Appearance Clear Clear Clear Urine Color Bright Yellow Bright Yellow Bright Yellow Urine Odor Strong Strong Strong OBJ DATA Labs CBC & Chem 7: 02/02/20 04:52 02/02/20 04:52 Labs: Abnormal Lab Results 02/02/20 02/02/20 02/02/20 04:52 04:52 04:52 WBC 4.4 L RBC 3.77 L Hgb 11.0 L Hct 34.0 L MPV 10.5 H Neut % (Auto) 78.1 H Lymph % (Auto) 8.7 L [place] % (Auto) 13.2 H Lymph # (Auto) 0.38 L [place] # (Auto) D-Dimer 0.96 H Sodium Glucose 128 H Calcium 8.1 L AST 90 H Lactate Dehydrogenase 265 H Total Creatine Kinase C-Reactive Protein Albumin 3.1 L Procalcitonin Urine Protein Urine Ketones Urine Occult Blood Urine RBC Calcium Oxalate Crystal Hyaline Casts Urine Mucus SARS-CoV-2 (PCR) 02/01/20 02/01/20 02/01/20 05:34 05:34 05:34 WBC RBC 3.96 L Hgb 11.7 L Hct 37.2 L MPV Neut % (Auto) Lymph % (Auto) 13.0 L [place] % (Auto) 14.5 H Lymph # (Auto) 0.78 L [place] # (Auto) D-Dimer 1.45 H Sodium 132 L Glucose Calcium 8.0 L AST 104 H Lactate Dehydrogenase 297 H Total Creatine Kinase 2894 H C-Reactive Protein 10.00 H Albumin Procalcitonin Urine Protein Urine Ketones Urine Occult Blood Urine RBC Calcium Oxalate Crystal Hyaline Casts Urine Mucus SARS-CoV-2 (PCR) 01/31/20 01/31/20 01/31/20 21:41 18:34 17:10 WBC RBC Hgb Hct MPV Neut % (Auto) Lymph % (Auto) [place] % (Auto) Lymph # (Auto) [place] # (Auto) D-Dimer Sodium Glucose Calcium AST Lactate Dehydrogenase Total Creatine Kinase 2859 H C-Reactive Protein Albumin Procalcitonin 0.51 H Urine Protein 30 A Urine Ketones 20 A Urine Occult Blood >=1.0 A Urine RBC 3 H Calcium Oxalate Crystal Few A Hyaline Casts 12 H Urine Mucus Few A SARS-CoV-2 (PCR) Positive A 01/31/20 01/31/20 17:10 17:10 WBC RBC 4.35 L Hgb 12.9 L Hct 40.0 L MPV Neut % (Auto) Lymph % (Auto) 9.2 L [place] % (Auto) 17.6 H Lymph # (Auto) 0.66 L [place] # (Auto) 1.26 H D-Dimer Sodium Glucose Calcium 8.4 L AST 72 H Lactate Dehydrogenase Total Creatine Kinase 2543 H C-Reactive Protein Albumin Procalcitonin Urine Protein Urine Ketones Urine Occult Blood Urine RBC Calcium Oxalate Crystal Hyaline Casts Urine Mucus SARS-CoV-2 (PCR) Meds: Medications Acetaminophen (Tylenol) 650 mg PO Q4-6HP PRN; Protocol PRN Reason: Per Pain Protocol/Fever > 101 Last Admin: 02/01/20 21:21 Dose: 650 mg Documented by: Albuterol Sulfate (Ventolin) 2 puff INH Q4-6HP PRN PRN Reason: Shortness Of Breath Last Admin: 02/01/20 16:27 Dose: 2 puff Documented by: Albuterol/Ipratropium (Duoneb) 3 ml NEB QID [facility] Last Admin: 02/02/20 08:45 Dose: Not Given Documented by: Bisacodyl (Dulcolax) 10 mg KS Q2-3DAYS PRN PRN Reason: Constipation Cyanocobalamin (Vitamin B-12) 1,000 mcg PO BID [facility] Stop: 02/05/20 09:01 Last Admin: 02/02/20 08:45 Dose: 1,000 mcg Documented by: Dexamethasone (Decadron) 6 mg PO DAILY [facility] Last Admin: 02/02/20 08:16 Dose: 6 mg Documented by: Docusate Sodium (Colace) 100 mg PO BID [facility] Last Admin: 02/02/20 08:16 Dose: 100 mg Documented by: Finasteride (Proscar) 5 mg PO QDAY [facility] Last Admin: 02/02/20 08:16 Dose: 5 mg Documented by: Gabapentin (Neurontin) 400 mg PO BID [facility] Last Admin: 02/02/20 08:16 Dose: 400 mg Documented by: Heparin Sodium (Porcine) (Heparin) 5,000 unit SQ Q12 [facility] Last Admin: 02/02/20 08:17 Dose: 5,000 unit Documented by: Hydralazine HCl (Apresoline) 10 mg IV Q4-6HP PRN PRN Reason: Hypertension Potassium Chloride 40 meq/ (Dextrose) 520 mls @ 130 mls/hr IV UD PRN PRN Reason: K+ = or < 3.5 Acetaminophen (Ofirmev) 650 mg in 65 mls @ 130 mls/hr IV Q6HP PRN; Protocol PRN Reason: Per Pain Protocol/Fever > 101 Magnesium Sulfate (Magnesium Sulfate) 2 gm in 50 mls @ 50 mls/hr IV UD PRN PRN Reason: MG = or < 1.7 Ceftriaxone Sodium 2 gm/ (Dextrose) 50 mls @ 100 mls/hr IV Q24H [facility]; Protocol Last Admin: 02/02/20 08:17 Dose: 100 mls/hr Documented by: Sodium Chloride (Sodium Chloride 0.9%) 1,000 mls @ 50 mls/hr IV .Q20H [facility] Stop: 02/03/20 09:14 Last Admin: 02/01/20 19:00 Dose: 50 mls/hr Documented by: REMDESIVIR 100 mg/ Sodium (Chloride) 250 mls @ 500 mls/hr IV DAILY@1000 [facility] Stop: 02/05/20 10:29 Iron Carb/Multivit/[place]/Folic Acid (Multivitamin W/Minerals) 1 tab PO DAILY [facility] Last Admin: 02/02/20 08:16 Dose: 1 tab Documented by: Levothyroxine Sodium (Synthroid) 25 mcg PO QAMAC [facility] Last Admin: 02/02/20 07:32 Dose: 25 mcg Documented by: Melatonin (Melatonin 3mg Tablet) 3 mg PO HSP PRN PRN Reason: Insomnia Last Admin: 02/02/20 00:20 Dose: 3 mg Documented by: Methocarbamol (Robaxin) 750 mg PO BIDP PRN PRN Reason: Muscle Spasm Last Admin: 02/02/20 03:34 Dose: 750 mg Documented by: Metoprolol Tartrate (Lopressor) 5 mg IV Q5M PRN PRN Reason: Heart Rate > 140 bpm Ondansetron HCl (Zofran Odt) 4 mg SL Q4-6HP PRN; Protocol PRN Reason: Nausea And Vomiting Last Admin: 02/01/20 22:29 Dose: 4 mg Documented by: Ondansetron HCl (Zofran) 4 mg IV Q4-6HP PRN; Protocol PRN Reason: Nausea And Vomiting Tiotropium [place] (Respimat Inhaler) 2 dose INH QDAY [facility] Last Admin: 02/02/20 08:17 Dose: 2 dose Documented by: Budesonide- Formoterol 160 Mcg/4 .5 Mcg Inhaler 2 dose INH BID [facility] Last Admin: 02/02/20 08:17 Dose: 2 dose Documented by: Polyethylene Glycol (Miralax) 17 gm PO DAILYP PRN PRN Reason: Constipation Potassium Chloride (Klor-Con) 40 meq PO DAILYP PRN PRN Reason: K+ < 3.5 Senna/Docusate Sodium (Senna Plus Tablet) 1 tab PO HS [facility] Last Admin: 02/01/20 21:20 Dose: 1 tab Documented by: Sodium Chloride (Saline Flush) 10 ml IV Q8 [facility] Last Admin: 02/02/20 05:19 Dose: Not Given Documented by: Tamsulosin HCl (Flomax) 0.4 mg PO QDAY [facility] Last Admin: 02/02/20 08:45 Dose: 0.4 mg Documented by: A/P Narrative A/P Narrative: * COVID -19 Acute Viral Syndrome with basilar chest infiltrates and weakness. Clinically and radiological improvement noted. Day 2 remdesivir/dexamethasone * Acute respiratory failure with hypoxia clinically improving now on 2 L oxygen. * Acute kidney injury clinically improved. Creatinine down from 1.1->0.8. Secondary to rhabdo * Rhabdomyoslysis secondary to fall. Clinically resolved. Renal function normalized. * Weakness and fall. Continue therapy/nutrition support/gait and safety eval * History of COPD at baseline. Continue bronchodilators/oxygen * Neuropathy continue home dose gabapentin * BPH on tamsulosin * Hypothyroidism continue thyroxine * Full code * Prophylaxis heparin Plan * Remdesivir day 2/5 start remdesivir * Continue pre-existing medical condition management home meds * Nutrition support * Daily therapies * Discharge planning Time Spent With Patient Time: Total time spent is greater than 50% in coordination of care (as documented) at patient's floor/unit and/or counseling patient: QUALITY Stroke Symptom Onset Unknown: No VTE Deep Vein Thrombosis/Pulmonary Embolism Present on Admission: No
[2020-02-02] MEDS: ALBUTEROL SULFATE 200 PUFF INHALER INH PRN ×2 (12:44→16:13)
[2020-02-02] MEDS: 0.9 % SODIUM CHLORIDE 1,000 ML IV SCH ×2 (12:44→16:13)
[2020-02-02] MEDS ORDERED: BISMUTH SUBSALICYLATE 15 ML ORAL.SUSP PO PRN (21:36)
[2020-02-02] MEDS: SENNOSIDES/DOCUSATE SODIUM 1 TAB TABLET PO SCH (22:15)
[2020-02-03] MEDS: 0.9 % SODIUM CHLORIDE 10 ML SYRINGE IV SCH ×2 (04:31→14:36)
[2020-02-03 06:41] LABS: Basophils # (Auto) 0 K/mcL (0.00-0.20); Basophils % (Auto) 0 % (0.0-2.0); Eosinophils # (Auto) 0 K/mcL (0.00-0.70); Eosinophils % (Auto) 0 % (0.0-7.0); Hematocrit 35.5 % (41.0-55.0); Hemoglobin 11.4 g/dL (13.5-16.5); Lymphocytes # (Auto) 0.66 K/mcL (1.50-4.80); Lymphocytes % (Auto) 12.7 % (15.0-49.0); Mean Cell Volume 90.3 fL (80.0-100.0); Mean Corpuscular HGB Conc 32.1 g/dL (31.0-36.0); Mean Platelet Volume 10.7 fL (7.4-10.4); Monocytes # (Auto) 0.62 K/mcL (0.10-0.90); Neutrophils % (Auto) 75.3 % (38.0-78.0); Platelet Count 168 K/mcL (140-440); RBC 3.93 M/mcL (4.50-5.90); Red Cell Distribution Width 13.3 % (11.5-14.5); WBC 5.2 K/mcL (4.5-11.0)
[2020-02-03 07:08] LABS: ALT/SGPT 31 U/L (<40); AST/SGOT 79 U/L (<40); Alkaline Phosphatase 57 U/L (39-117); Bilirubin,Direct < 0.2 mg/dL (<0.3); Bilirubin,Total < 0.2 mg/dL (0.1-1.0); Blood Urea Nitrogen 17 mg/dL (8-23); Calcium 8.3 mg/dL (8.6-10.4); Carbon Dioxide 29 mmol/L (22-30); Chloride 102 mmol/L (96-108); Glomerular Filtration Rate 84; Glucose 115 mg/dL (70-105); Lactate Dehydrogenase 255 U/L (135-225); Phosphorous 2.6 mg/dL (2.5-4.5); Triglycerides 46 mg/dL (<150); Uric Acid 3.9 mg/dL (2.5-8.0)
[2020-02-03] MEDS: LEVOTHYROXINE 25 MCG TABLET PO SCH (07:27)
[2020-02-03] MEDS: FINASTERIDE 5 MG TABLET PO SCH (08:27)
[2020-02-03] MEDS: DOCUSATE SODIUM 100 MG CAPSULE PO SCH (08:27)
[2020-02-03] MEDS: MULTIVIT,THER IRON,CA,FA & MIN 1 TABLET PO SCH (08:27)
[2020-02-03] MEDS: GABAPENTIN 400 MG CAPSULE PO SCH (08:27)
[2020-02-03] MEDS: TIOTROPIUM BROMIDE RESPIMAT INH SCH (08:28)
[2020-02-03] MEDS: cefTRIAXone 2 GM in DEXTROSE 5% IN WATER 50 ML IV SCH (08:28)
[2020-02-03] MEDS: DEXAMETHASONE 4 MG TABLET PO SCH (08:28)
[2020-02-03] MEDS: BUDESONIDE FORMOTEROL INH SCH (08:28)
[2020-02-03] MEDS: CYANOCOBALAMIN (VITAMIN B-12) 500 MCG TABLET PO SCH (08:29)
[2020-02-03] MEDS: TAMSULOSIN 0.4 MG CAPSULE PO SCH (08:32)
[2020-02-03] MEDS: IPRATROPIUM/ALBUTEROL 3 ML AMPUL.NEB NEB SCH ×2 (08:32→13:33)
[2020-02-03] MEDS: HEPARIN 5,000 UNIT/ML VIAL SQ SCH (08:32)
[2020-02-03] MEDS: ALBUTEROL SULFATE 200 PUFF INHALER INH PRN (08:45)
[2020-02-03] MEDS: REMDESIVIR 100 MG in 0.9 % SODIUM CHLORIDE 250 ML IV SCH (09:26)
--- NOTE | 2020-02-03 11:34 | Discharge Summary ---
Discharge Provider Provider Patient information: Note initiated : 02/03/20 at 11:18 am Service Date, if different from initiated Date: [] Patient: Mathieu Tang 89 y/o M admitted on 01/31/20 for N/v/d, weakness, fever. Chief Complaint: [Found down] Date of admission: 01/31/20 21:12 Discharge date: 02/03/20 Primary care physician: Edwin Jones Consults: 01/31/20 Consult to Physician [CONS] Stat Comment: Consulting Provider: Paco Lloyd Reason For Exam: Physician to Consult Discharge Meds Discharge Medications Home Medications albuterol sulfate 90 mcg/actuation aerosol inhaler 2 puff INHALATION .Q4-6H PRN g 01/09/20 [History Confirmed 01/31/20 Last Taken 01/31/20 06:00] budesonide-formoterol HFA 160 mcg-4.5 mcg/actuation aerosol inhaler 2 puff INHALATION BID 01/09/20 [History Confirmed 01/31/20 Last Taken 01/29/20 17:00] finasteride 5 mg tablet 5 mg PO QDAY 01/09/20 [History Confirmed 01/31/20 Last Taken 01/29/20 20:00] gabapentin 400 mg capsule 400 mg PO BID 01/09/20 [History Confirmed 01/31/20 Last Taken 01/30/20 17:30] ipratropium 0.5 mg-albuterol 3 mg (2.5 mg base)/3 mL nebulization soln 3 ml INHALATION QID 01/09/20 [History Confirmed 01/31/20 Last Taken 01/30/20 19:00] levothyroxine 25 mcg tablet 25 mcg PO QDAY 01/09/20 [History Confirmed 01/31/20 Last Taken 01/29/20 18:00] tamsulosin 0.4 mg capsule 0.4 mg PO QDAY 01/09/20 [History Confirmed 01/31/20 Last Taken 01/29/20 17:30] tiotropium bromide 2.5 mcg/actuation mist for inhalation 2 puff INHALATION QDAY 01/09/20 [History Confirmed 01/31/20 Last Taken 01/29/20 17:30] dexamethasone 6 mg PO DAILY 6 Days #9 tab 02/03/20 [Rx Last Taken Unknown] COURSE Hospital Course Hospital course: Mr. Tang is a 89 year old M with a history of O2 dependent COPD/neuropathy/BPH and hypothyroidism who lives fairly independently at [place]. He had a fall at home and remained on the ground for about 17 hours before EMS was notified and brought the patient to the ED. Prior to the fall he had been feeling generally fatigued. In the ED the patient had a positive SARS-CoV-2 PCR, mildly elevated creatinine kinase, and mildly elevated creatinine. He was started on treatment for COPD exacerbation, COVID with dexamethasone and remdesivir, and IV fluids for mild rhabdomyolisis. Chest xray was negative for an acute process, the patient was treated with empiric ceftriaxone initially, later discontinued. The patient had intermittent fevers the day after discharge, continued to feel week but improved gradually over the next couple of days. CK was followed until downtrending, renal function recovered with IV fluid. The patient's generalized weakness improved however he remained weak therefore discharge to a SNF was considered however the patient preferred to discharge to home with home health. Dexamethasone will be continued to complete 10 days in light of the caridad's COPD diagnosis. A home oxygen evaluation was performed on the day of discharge, the patient required about 2 l/min of oxygen supplementation during the six minute walk test. The patient was discharge on the appropriate amount of home oxygen. Discharge diagnosis: Generalized weakness secondary to COVID Secondary discharge diagnosis: Acute kidney injury, mild Rhabdomyolysis, mild Time Spent with Patient Time attestation: Total time spent providing and/or coordinating discharge services: Time spent: Greater than 30 minutes EXAM Constitutional Vitals: Temp Pulse Resp BP Pulse Ox 95.3 F L 62 18 140/75 96 02/03/20 07:07 02/03/20 07:07 02/03/20 07:31 02/03/20 07:07 02/03/20 07:31 Head Head exam: Present atraumatic and normal inspection Eye Eye exam: Present normal appearance; Absent scleral icterus ENT ENT exam: Present mucous membranes moist and normal exam Neck Neck exam: Present full ROM Respiratory Respiratory exam: Present rales; Absent accessory muscle use and respiratory distress Cardiovascular Cardiovascular exam: Present normal rate and rhythm GI/Abdominal GI/Abdominal exam: Present soft; Absent distended Back Exam Back exam: Present normal inspection Neurological Exam Neurological exam: Present CN II-XII intact Psychiatric Psychiatric exam: Present normal mood; Absent agitated and anxious Skin Skin exam: Present normal color and warm Discharge Data Data Completed and Pending Labs on day of discharge: Labs from last 24 hours 02/03/20 02/03/20 02/03/20 05:18 05:18 05:18 WBC 5.2 RBC 3.93 L Hgb 11.4 L Hct 35.5 L MCV 90.3 MCH 29.0 MCHC 32.1 RDW 13.3 Plt Count 168 MPV 10.7 H Neut % (Auto) 75.3 Lymph % (Auto) 12.7 L [place] % (Auto) 12.0 Eos % (Auto) 0 Baso % (Auto) 0 Lymph # (Auto) 0.66 L [place] # (Auto) 0.62 Eos # (Auto) 0 Baso # (Auto) 0 Absolute Neutrophils 3.90 Sodium 138 Potassium 4.0 Chloride 102 Carbon Dioxide 29 Anion Gap 7.0 L BUN 17 Creatinine 0.7 GFR Calculation 84 Glucose 115 H Uric Acid 3.9 Calcium 8.3 L Phosphorus 2.6 Magnesium 2.2 Total Bilirubin < 0.2 Direct Bilirubin < 0.2 GGT 14 AST 79 H ALT 31 Alkaline Phosphatase 57 Lactate Dehydrogenase 255 H Total Creatine Kinase 1013 H Total Protein 6.0 Albumin 3.0 L Globulin 3.0 Albumin/Globulin Ratio 1.0 Triglycerides 46 Discharge Plan Patient/Caregiver Discharge Instructions Activity: resume usual activities as tolerated Diet: Low Sodium (2gm) Instructions: COVID-19, Dexamethasone (By mouth) Activity Restrictions/Additional Instructions: Resume low sodium diet as tolerated Activity as tolerated Follow up with Edwin Jones. Contact the office on Saturday 02/03 to schedule. [phone] Take all medication as directed. Your prescription is with your discharge paperwork. 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 Return to ER for fever, chills, uncontrolled pain, unable to go to the bathroom, nausea and/or vomiting, swelling, redness, signs of infection, shortness of breath, chest pain, return of symptom, or other acute symptom This discharge packet is provided to you to help keep you informed about your care. We want to ensure you get everything you need when you go home. You will also be receiving a call from us in a few days to follow up with you and see how you are doing since your discharge. This gives us a chance to listen to any concerns you maybe experiencing since you were discharged or any additional needs you may have, as well as providing us feedback on your care experience. We strive to always provide excellent care and thank you for your feedback and for choosing [facility]. Prescriptions: New dexamethasone 4 mg Tablet 6 mg PO DAILY 6 Days Qty: 9 RF: 0 Continued ipratropium-albuterol 0.5 mg-3 mg(2.5 mg base)/3 mL solution for nebulization 3 ml INHALATION QID RF: 0 albuterol sulfate 90 mcg/actuation HFA aerosol inhaler 2 puff INHALATION .Q4-6H PRN (Reason: Shortness Of Breath) RF: 0 budesonide-formoterol 160-4.5 mcg/actuation HFA aerosol inhaler 2 puff INHALATION BID RF: 0 finasteride 5 mg tablet 5 mg PO QDAY RF: 0 gabapentin 400 mg capsule 400 mg PO BID RF: 0 levothyroxine 25 mcg tablet 25 mcg PO QDAY RF: 0 tamsulosin 0.4 mg capsule 0.4 mg PO QDAY RF: 0 tiotropium bromide 2.5 mcg/actuation mist 2 puff INHALATION QDAY RF: 0 Follow Up Plan Follow up with: Edwin Jones ARNP [Primary Care Provider] - Patient Disposition: Home Health Service Prognosis: Fair Rehab Potential: Fair Overall status at discharge: patient is progressing back to baseline Discharge Orders: Discharge Order (Routine); Ordered 02/03/20 Ordered By: Theodore JOYA VTE Deep Vein Thrombosis/Pulmonary Embolism Present on Admission: No
== END 2020-02-03 15:20 | disposition home health service (06) | DRG 190 ==
LOC: ICU 16:27 → ED 16:27 → OBSVTOIN 21:12 → ICU 21:23
PROVIDERS: ADMIT Internal Medicine; ATTEND Internal Medicine

== ENCOUNTER 2020-05-13 19:46 | Inpatient (IN) ==
[2020-05-13] MEDS ORDERED: IOPAMIDOL 100 ML BOTTLE IV ONE (19:47)
[2020-05-13] MEDS ORDERED: methylPREDNISolone SOD SUCC 125 MG/2 ML VIAL IV ONE (20:04)
[2020-05-13] MEDS ORDERED: IPRATROPIUM/ALBUTEROL 3 ML AMPUL.NEB NEB ONE (20:04)
[2020-05-13] MEDS ORDERED: cefTRIAXone 1 GM VIAL IV ONE (20:04)
--- NOTE | 2020-05-13 20:16 | Emergency Department Note ---
SOB HPI General Chief Complaint: Shortness of Breath/Dyspnea Time Seen by Provider: 05/13/20 19:57 Source: patient Mode of arrival: EMS Limitations: no limitations History of Present Illness HPI Narrative: Narrative: Presents to room T3 for evaluation of shortness of breath. The patient has a past medical history of COPD and does take oxygen at home. He reports for the last 3 days he has had increasing cough with shortness of breath and low-grade fever. He denies any chest pain. No lower extremity swelling or calf pain. No nausea or vomiting. Symptoms are constant. He denies any exacerbating or alleviating factors. Related Data Home Medications Medication Instructions Recorded Confirmed albuterol sulfate 90 mcg/actuation 2 puff INHALATION .Q4-6H PRN g 01/09/20 03/11/20 aerosol inhaler budesonide-formoterol HFA 160 2 puff INHALATION BID 01/09/20 03/11/20 mcg-4.5 mcg/actuation aerosol inhaler finasteride 5 mg tablet 5 mg PO QDAY 01/09/20 03/11/20 gabapentin 400 mg capsule 400 mg PO BID 01/09/20 03/11/20 ipratropium 0.5 mg-albuterol 3 mg 3 ml INHALATION QID 01/09/20 03/11/20 (2.5 mg base)/3 mL nebulization soln levothyroxine 25 mcg tablet 25 mcg PO QDAY 01/09/20 03/11/20 tamsulosin 0.4 mg capsule 0.4 mg PO QDAY 01/09/20 03/11/20 tiotropium bromide 2.5 2 puff INHALATION QDAY 01/09/20 03/11/20 mcg/actuation mist for inhalation Allergies Allergy/AdvReac Type Severity Reaction Status Date / Time oxycodone Allergy Intermediate Confusion Verified 05/13/20 19:47 morphine Allergy Mild Hives Verified 05/13/20 19:47 Review of Systems ROS ROS Narrative: Narrative: All systems ED: reviewed and negative except as stated. [facility] Narrative Patient History Narrative: Narrative: Medical/Surgical/Family History All Active Problems (Updated 05/13/20 @ 22:39 by Srikanth Gold MD) Dyspnea (Acute) Acute exacerbation of chronic obstructive pulmonary disease (Acute) Pulmonary edema (Acute) Rhabdomyolysis (Acute) Lab test positive for detection of COVID-19 virus (Acute) History of surgery (Chronic) History of total left knee replacement (Chronic ~1997) History of back surgery (Chronic) Tinnitus, bilateral (Chronic) Spinal stenosis (Chronic) Solitary lung nodule (Chronic) Sleep apnea, unspecified (Chronic) Shoulder pain (Chronic) Shortness of breath (Chronic) Sensorineural hearing loss, bilateral (Chronic) Primary osteoarthritis, unspecified site (Chronic) Peripheral vascular disease (Chronic) Hypothyroidism (Chronic) Hyperlipidemia (Chronic) History of colonoscopy (Chronic) Essential hypertension (Chronic) Diverticular disease of colon (Chronic) Chronic obstructive pulmonary disease, unspecified (Chronic) Chest pain, unspecified (Chronic) Medical History (Updated 05/13/20 @ 22:39 by Srikanth Gold MD) Chest pain, unspecified Chronic obstructive pulmonary disease, unspecified Diverticular disease of colon Essential hypertension Hyperlipidemia Hypothyroidism Peripheral vascular disease Primary osteoarthritis, unspecified site Sensorineural hearing loss, bilateral Shortness of breath Shoulder pain Sleep apnea, unspecified Solitary lung nodule Spinal stenosis Tinnitus, bilateral Surgical History History of back surgery x4 History of colonoscopy History of surgery 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 History of total left knee replacement (~1997) Family History Father Congestive heart failure Brother Cancer of kidney Mother , age 77 Diabetes Social History Smoking Status: Former smoker Alcohol Intake Frequency: a few times a month Exam Narrative Narrative: Narrative: General Limitations: no limitations General appearance: Present alert and in no apparent distress Head Head: Present atraumatic, normocephalic and normal inspection Eye Eye: Present normal appearance and EOMI; Absent conjunctival injection ENT ENT: Present normal exam and mucous membranes moist Neck Neck: Present normal inspection and trachea midline Respiratory Respiratory: Present normal lung sounds bilaterally, rales/crackles (Crackles noted in the right base posterior and laterally) and wheezes; Absent respiratory distress Cardiovascular Cardiovascular: Present normal rhythm, tachycardia and normal heart sounds Adbominal Abdominal: Present soft; Absent distention, tenderness, guarding and rebound Extremities Extremities: Present normal inspection; Absent tenderness Back Back: Present normal inspection; Absent tenderness Neurological Neurological: Present alert, oriented X3 and CN II-XII intact; Absent motor sensory deficit Psychiatric Psychiatric: Present normal affect and normal mood Skin Skin: Present warm (WNL) and dry; Absent rash Course Vital Signs Vital signs: Vital Signs Temperature 100.7 F H 05/13/20 19:47 Pulse Rate 117 H 05/13/20 19:47 Respiratory Rate 32 H 05/13/20 19:47 Blood Pressure 159/84 05/13/20 19:47 Pulse Oximetry (%) 97 05/13/20 19:47 Temperature 100.7 F H 05/13/20 19:47 Pulse Rate 110 H 05/13/20 19:54 Respiratory Rate 31 H 05/13/20 19:54 Blood Pressure 159/84 05/13/20 19:54 Pulse Oximetry (%) 97 05/13/20 19:54 MDM MDM Narrative Medical decision making narrative: Narrative: Patient presents for evaluation of shortness of breath with cough and congestion and low-grade fever. Patient's labs are unremarkable except for his BNP which is slightly elevated. The patient CT scan of the chest shows diffuse interstitial infiltrates which is suggestive of pneumonitis versus interstitial pulmonary edema. There is no large pulmonary emboli seen. There is no focal consolidation. Clinically the patient had coarse crackles and rhonchi in the right base suggestive of pneumonia. He was given IV Rocephin after blood cultures. The patient also received IV Solu-Medrol and albuterol DuoNeb. On repeat examination the patient is improved but still has coarse adventitial sounds bilaterally. The patient denies any history of CHF and I cannot find evidence of a cardiac echo in his medical record. The patient was diagnosed with Covid in January of last year and has been fully immunized. The patient is somewhat tachypneic and feels dyspneic in spite of treatment. I think he would benefit from admission and have discussed the case with the hospitalist. EKG Data EKG #1: EKG attestation: Yes I reviewed and interpreted this EKG. and Yes There are no EKG findings of acute coronary syndrome EKG results narrative: Sinus tachycardia, rate of 109, normal ST segments, no ectopy, normal QRS Rhythm Strip Data Rhythm Strip Rate: 110 Interpretation: sinus tachycardia Pulse Oximetry Data Pulse Ox %: 97 Interpretation: on O2, hypoxia corrected Discharge Plan Patient/Caregiver Discharge Instructions Pt seen by SALESPERSON [employer] [facility]ARS/PA only: No Clinical Impression: Dyspnea, Acute exacerbation of chronic obstructive pulmonary disease, Pulmonary edema Patient Disposition: Xfer As Inpt ([facility]) Follow up with: Edwin Jones ARNP [Primary Care Provider] - Prescriptions: No Action ipratropium-albuterol 0.5 mg-3 mg(2.5 mg base)/3 mL solution for nebulization 3 ml INHALATION QID RF: 0 albuterol sulfate 90 mcg/actuation HFA aerosol inhaler 2 puff INHALATION .Q4-6H PRN (Reason: Shortness Of Breath) RF: 0 budesonide-formoterol 160-4.5 mcg/actuation HFA aerosol inhaler 2 puff INHALATION BID RF: 0 finasteride 5 mg tablet 5 mg PO QDAY RF: 0 gabapentin 400 mg capsule 400 mg PO BID RF: 0 levothyroxine 25 mcg tablet 25 mcg PO QDAY RF: 0 tamsulosin 0.4 mg capsule 0.4 mg PO QDAY RF: 0 tiotropium bromide 2.5 mcg/actuation mist 2 puff INHALATION QDAY RF: 0
[2020-05-13 20:31] LABS: POC Blood Urea Nitrogen 16 mg/dL (6-20); POC CO2 27 mmol/L (22-30); POC Calcium, Ionized 1.09 mmEq/L (1.16-1.32); POC Chloride 101 mEq/L (96-108); POC Glucose, Random 103 mg/dL (70-105); POC Hematocrit 36 % (41-55); POC Potassium 4.9 mEql/L (3.3-5.1); POC Sodium 136 mEq/L (133-145)
[2020-05-13 21:21] LABS: Basophils # (Auto) 0.04 K/mcL (0.00-0.20); Basophils % (Auto) 0.4 % (0.0-2.0); Eosinophils # (Auto) 0.77 K/mcL (0.00-0.70); Hematocrit 36.3 % (41.0-55.0); Hemoglobin 11.5 g/dL (13.5-16.5); Lymphocytes # (Auto) 0.98 K/mcL (1.50-4.80); Lymphocytes % (Auto) 10.2 % (15.0-49.0); Mean Cell Volume 91.7 fL (80.0-100.0); Mean Corpuscular HGB Conc 31.7 g/dL (31.0-36.0); Mean Platelet Volume 9.8 fL (7.4-10.4); Monocytes # (Auto) 1.11 K/mcL (0.10-0.90); Monocytes % (Auto) 11.6 % (1.0-12.0); Neutrophils % (Auto) 69.8 % (38.0-78.0); Platelet Count 232 K/mcL (140-440); RBC 3.96 M/mcL (4.50-5.90); WBC 9.6 K/mcL (4.5-11.0)
[2020-05-13 21:45] LABS: ALT/SGPT 8 U/L (<40); AST/SGOT 16 U/L (<40); Albumin 3.4 gm/dL (3.2-5.2); Albumin/Globulin Ratio 0.9 (1.0-2.3); Alkaline Phosphatase 89 U/L (39-117); Bilirubin,Total 0.3 mg/dL (0.1-1.0); Blood Urea Nitrogen 15 mg/dL (8-23); Calcium 8.5 mg/dL (8.6-10.4); Carbon Dioxide 26 mmol/L (22-30); Chloride 98 mmol/L (96-108); Glomerular Filtration Rate 67; Glucose 97 mg/dL (70-105)
[2020-05-14] MEDS: IPRATROPIUM/ALBUTEROL 3 ML AMPUL.NEB NEB SCH ×4 (03:06→19:30)
--- NOTE | 2020-05-14 04:11 | Cat Scan Report ---
CLINICAL INFORMATION: Dyspnea COMPARISON: None. TECHNIQUE: 80ml of Isovue-370 were injected intravenously. Using SmartPrep to maximize pulmonary artery opacification, .625mm helical slices were obtained from the lung apices through the lung bases. Following reconstruction, 2.5 mm sagittal, coronal, and axial reformations were processed. The exam was reviewed at mediastinal, lung, and bone windows. The exam was performed using radiation dose optimization techniques including, but not limited to, automated exposure control, adjustment of the mA and/or kV according to patient size and use of iterative reconstruction technique. FINDINGS: Pulmonary parenchymal windows show moderate underlying centrilobular emphysema featuring chronic bronchitis with elevated lung volumes and wall thickening/dilatation of bronchi. There are multiple bullae predominantly in the upper lobes but also in the periphery of both lower and right middle lobes. Scattered interstitial fibrosis in the periphery of both upper and lower lobes appreciated. Moderate patchy alveolar infiltrate throughout the right lower lobe is suspicious for aspiration or, less likely, infection. There are no effusions. Mediastinal windows show the heart is normal in size. There is moderately heavy calcific plaque in the coronary arteries - particularly left main. Mild calcification is seen in the mitral and aortic valves. The thoracic aorta is normal diameter with extremely heavy fibrofatty and calcific plaque in the descending thoracic aortic segment. The pulmonary arteries are normal diameter and well-opacified: no evidence of embolus. A few moderately enlarged lymph nodes in the lower mediastinum ranges up to 16 mm in the AP window. This likely represents benign reactive adenopathy. Small hiatal hernia noted. The thyroid is diminutive. Bone windows show no osseous abnormality. Images through the superior abdomen show simple cysts within the kidneys noted, but no significant abnormality IMPRESSION: 1. No evidence of pulmonary embolus. 2. Moderate patchy infiltrates in both lower lobes. Aspiration or, less likely, infection is suspected. 3. Moderate centrilobular emphysema. 4. Few moderately enlarged lymph nodes in the lower mediastinum and right hilum. They're likely benign reactive lymph nodes related to bilateral lower lobe infection/aspiration 5. Small hiatal hernia 6. Diminutive thyroid. Please correlate with TSH to ensure the absence of hypothyroidism 7. Bilateral renal cysts. Interpreted and Authenticated by: Demond Chacko 05/14/20
--- NOTE | 2020-05-14 08:17 | Internal Med History&Physical ---
HPI History of Present Illness Patient information: Note initiated : 05/14/20 at 8:07 am Service Date, if different from initiated Date: [] Patient: Mathieu Tang 89 y/o M admitted on 05/14/20 for Shortness of breath. Chief Complaint: [] History of present illness: Mr. Tang is a 89 year old M Presented to the ED with worsening shortness of breath patient and stating COPD was worsening. Hypoxic on several liters of oxygen when he arrived. Required 4 L of oxygen. Have been occurring for 3 days and has had increasing cough as well of yellow phlegm. He also feels wheezy. Was mildly febrile on admit at 100.7. CT was concerning for pneumonia. Patient states the duo nebs and inhalers have given him temporary relief. Review of Systems: Pertinent positives as above. denies headache//nausea/vomiting/chest or abdominal pain/diarrhea. Remaining 10 point review of system reviewed negative PFSH PFSH All Active Problems (Updated 05/13/20 @ 22:39 by Srikanth Gold MD) Dyspnea (Acute) Acute exacerbation of chronic obstructive pulmonary disease (Acute) Pulmonary edema (Acute) Rhabdomyolysis (Acute) Lab test positive for detection of COVID-19 virus (Acute) History of surgery (Chronic) History of total left knee replacement (Chronic ~1997) History of back surgery (Chronic) Tinnitus, bilateral (Chronic) Spinal stenosis (Chronic) Solitary lung nodule (Chronic) Sleep apnea, unspecified (Chronic) Shoulder pain (Chronic) Shortness of breath (Chronic) Sensorineural hearing loss, bilateral (Chronic) Primary osteoarthritis, unspecified site (Chronic) Peripheral vascular disease (Chronic) Hypothyroidism (Chronic) Hyperlipidemia (Chronic) History of colonoscopy (Chronic) Essential hypertension (Chronic) Diverticular disease of colon (Chronic) Chronic obstructive pulmonary disease, unspecified (Chronic) Chest pain, unspecified (Chronic) Medical History (Updated 05/13/20 @ 22:39 by Srikanth Gold MD) Chest pain, unspecified Chronic obstructive pulmonary disease, unspecified Diverticular disease of colon Essential hypertension Hyperlipidemia Hypothyroidism Peripheral vascular disease Primary osteoarthritis, unspecified site Sensorineural hearing loss, bilateral Shortness of breath Shoulder pain Sleep apnea, unspecified Solitary lung nodule Spinal stenosis Tinnitus, bilateral Surgical History History of back surgery x4 History of colonoscopy History of surgery 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 History of total left knee replacement (~1997) Family History Father Congestive heart failure Brother Cancer of kidney Mother , age 77 Diabetes Social History marital status: service: Yes occupational status: retired occupation: Construction smoking status: Former smoker smoking status stop date: 02/21/70 alcohol intake frequency: a few times a month MEDS/ALLERGIES Home Medications and Allergies Home Medications Medication Instructions Recorded Confirmed Type albuterol sulfate 90 mcg/actuation 2 puff INHALATION .Q4-6H PRN g 01/09/20 05/14/20 History aerosol inhaler budesonide-formoterol HFA 160 2 puff INHALATION BID 01/09/20 05/14/20 History mcg-4.5 mcg/actuation aerosol inhaler finasteride 5 mg tablet 5 mg PO QDAY 01/09/20 05/14/20 History gabapentin 400 mg capsule 400 mg PO BID 01/09/20 05/14/20 History ipratropium 0.5 mg-albuterol 3 mg 3 ml INHALATION QID 01/09/20 05/14/20 History (2.5 mg base)/3 mL nebulization soln levothyroxine 25 mcg tablet 25 mcg PO QDAY 01/09/20 05/14/20 History tamsulosin 0.4 mg capsule 0.4 mg PO QDAY 01/09/20 05/14/20 History tiotropium bromide 2.5 2 puff INHALATION BID 01/09/20 05/14/20 History mcg/actuation mist for inhalation Allergies Allergy/AdvReac Type Severity Reaction Status Date / Time oxycodone Allergy Intermediate Confusion Verified 05/13/20 19:47 morphine Allergy Mild Hives Verified 05/13/20 19:47 EXAM Constitutional Vitals: Temp Pulse Resp BP Pulse Ox 96.6 F L 70 18 131/66 99 05/14/20 04:00 05/14/20 08:02 05/14/20 08:02 05/14/20 04:00 05/14/20 08:02 Exam: General: Alert, Awake, No acute Distress Eyes/N/T: EOMI, PERRL, Head/Neck: neck supple, normocephalic atraumatic CV: RRR, No murmurs, normal s1/s2 Pulm: right base rhonchi, no wheezing Abd: soft, nontender, +BS x4 Ext: no clubbing/cyanosis/edema Neuro: Alert, no focal deficits, moves all extremities, CN 2-12 grossly intact, symmetrical strength b/l upper/lower, sensations intact b/l upper/lower Skin: warm/dry DATA Data Completed and Pending Labs: Labs from last 24 hours 05/13/20 05/13/20 05/13/20 21:19 20:15 20:15 WBC RBC Hgb Hct POC Hct 36 L MCV MCH MCHC RDW Plt Count MPV Neut % (Auto) Lymph % (Auto) [place] % (Auto) Eos % (Auto) Baso % (Auto) Lymph # (Auto) [place] # (Auto) Eos # (Auto) Baso # (Auto) Absolute Neutrophils VBG Lactic Acid 0.8 POC Sodium 136 Sodium 133 POC Potassium 4.9 Potassium 4.8 POC Chloride 101 Chloride 98 Carbon Dioxide 26 POC Total CO2 27 Anion Gap 9.0 POC BUN 16 BUN 15 Creatinine 1.0 POC Creatinine 1.0 GFR Calculation 67 Glucose 97 POC Glucose 103 Calcium 8.5 L POC WB Ioniz Calcium 1.09 L Total Bilirubin 0.3 AST 16 ALT 8 Alkaline Phosphatase 89 Troponin T < 0.01 NT-Pro-B Natriuret Pep 1003.0 H Total Protein 7.4 Albumin 3.4 Globulin 4.0 H Albumin/Globulin Ratio 0.9 L 05/13/20 20:15 WBC 9.6 RBC 3.96 L Hgb 11.5 L Hct 36.3 L POC Hct MCV 91.7 MCH 29.0 MCHC 31.7 RDW 13.0 Plt Count 232 MPV 9.8 Neut % (Auto) 69.8 Lymph % (Auto) 10.2 L [place] % (Auto) 11.6 Eos % (Auto) 8.0 H Baso % (Auto) 0.4 Lymph # (Auto) 0.98 L [place] # (Auto) 1.11 H Eos # (Auto) 0.77 H Baso # (Auto) 0.04 Absolute Neutrophils 6.70 VBG Lactic Acid POC Sodium Sodium POC Potassium Potassium POC Chloride Chloride Carbon Dioxide POC Total CO2 Anion Gap POC BUN BUN Creatinine POC Creatinine GFR Calculation Glucose POC Glucose Calcium POC WB Ioniz Calcium Total Bilirubin AST ALT Alkaline Phosphatase Troponin T NT-Pro-B Natriuret Pep Total Protein Albumin Globulin Albumin/Globulin Ratio A/P Narrative A/P Narrative: A: *CAP: -covid in January -had bibasilar infiltrates in january as well, ?aspiration (pt admits to coughing occas with food/drink) -febrile on admit *AECOPD (2-3L@home): *Acute on chronic hypoxic respiratory failure: -4L in ED, *Neuropathy: *Hypothyroidism P: -Rocephin/Azithro -steroids (wean), wean O2 -nebs/RT, IS/Acapella - -ST eval -pt/ot -ppx: lovenox DNR Time Spent With Patient Time: Total time spent is greater than 50% in coordination of care (as documented) at patient's floor/unit and/or counseling patient: QUALITY VTE Deep Vein Thrombosis/Pulmonary Embolism Present on Admission: No
[2020-05-14 10:04] LABS: Band Neutrophils % 4 % (0-10); Basophils % (Manual) 1 % (0-2); Eosinophils % (Manual) 7 % (0-7); Lymphocytes % 10 % (15-49); Monocytes % (Manual) 8 % (1-12); Platelet Estimate NORMAL (Normal); Polychromasia 1+ (None Seen); RBC Morphology ABNORMAL (Normal); Reactive Lymphocytes 1 % (0-2); Segmented Neutrophils % 69 % (38-78)
[2020-05-14] MEDS ORDERED: SENNOSIDES 1 TABLET PO PRN (10:37)
[2020-05-14] MEDS ORDERED: MAGNESIUM SULFATE 2 GM/50 ML BAG IV PRN (10:37)
[2020-05-14] MEDS ORDERED: ACETAMINOPHEN 325 MG TABLET PO PRN (10:37)
[2020-05-14] MEDS ORDERED: ONDANSETRON 4 MG/2 ML VIAL IV PRN (10:37)
[2020-05-14] MEDS ORDERED: POTASSIUM CHLORIDE 40 MEQ in DEXTROSE 5% IN WATER 500 ML IV PRN (10:37)
[2020-05-14] MEDS ORDERED: POLYETHYLENE GLYCOL 3350 17 GM PACKET PO PRN (10:37)
[2020-05-14] MEDS ORDERED: POTASSIUM CHLORIDE 20 MEQ TABLET PO PRN ×2 (10:37)
[2020-05-14] MEDS: methylPREDNISolone SOD SUCC 40 MG/ML VIAL IV SCH ×2 (11:18→20:39)
[2020-05-14] MEDS: AZITHROMYCIN 500 MG in DEXTROSE 5% IN WATER 250 ML IV SCH (11:19)
--- NOTE | 2020-05-14 13:02 | Discharge Summary ---
Discharge Provider Provider Patient information: Note initiated : 05/14/20 at 1:01 pm Service Date, if different from initiated Date: [] Patient: Mathieu Tang 89 y/o M admitted on 05/14/20 for Shortness of breath. Chief Complaint: [] Date of admission: 05/14/20 02:04 Discharge date: 05/15/20 Primary care physician: Edwin Jones Consults: 05/14/20 07:35 Consult to Physician [CONS] Routine Comment: Consulting Provider: Jerald Clinton Reason For Exam: Physician to Consult Discharge Meds Discharge Medications Home Medications albuterol sulfate 90 mcg/actuation aerosol inhaler 2 puff INHALATION .Q4-6H PRN g 01/09/20 [History Confirmed 05/14/20 Last Taken 05/13/20 17:30] budesonide-formoterol HFA 160 mcg-4.5 mcg/actuation aerosol inhaler 2 puff INHALATION BID 01/09/20 [History Confirmed 05/14/20 Last Taken 05/13/20 17:30] finasteride 5 mg tablet 5 mg PO QDAY 01/09/20 [History Confirmed 05/14/20 Last Taken 05/13/20 07:00] gabapentin 400 mg capsule 400 mg PO BID 01/09/20 [History Confirmed 05/14/20 Last Taken 05/13/20 07:00] ipratropium 0.5 mg-albuterol 3 mg (2.5 mg base)/3 mL nebulization soln 3 ml INHALATION QID 01/09/20 [History Confirmed 05/14/20 Last Taken 05/13/20 16:00] levothyroxine 25 mcg tablet 25 mcg PO QDAY 01/09/20 [History Confirmed 05/14/20 Last Taken 05/13/20 07:00] tamsulosin 0.4 mg capsule 0.4 mg PO QDAY 01/09/20 [History Confirmed 05/14/20 Last Taken 05/13/20 07:00] tiotropium bromide 2.5 mcg/actuation mist for inhalation 2 puff INHALATION BID 01/09/20 [History Confirmed 05/14/20 Last Taken 05/13/20 16:30] levofloxacin 750 mg PO Q24H #4 tab 05/14/20 [Rx Last Taken Unknown] prednisone 40 mg PO QDAY #1 tab 05/14/20 [Rx Last Taken Unknown] COURSE Hospital Course Hospital course: History of present illness: Mr. Tang is a 89 year old M Presented to the ED with worsening shortness of breath patient and stating COPD was worsening. Hypoxic on several liters of oxygen when he arrived. Required 4 L of oxygen. Have been occurring for 3 days and has had increasing cough as well of yellow phlegm. He also feels wheezy. Was mildly febrile on admit at 100.7. CT was concerning for pneumonia. Patient states the duo nebs and inhalers have given him temporary relief. 05/15 Patient is on 1 L nasal cannula and typically is 2-3 at home. A: *CAP: -covid in January -had bibasilar infiltrates in january as well, ?aspiration (pt admits to coughing occas with food/drink) -febrile on admit *AECOPD (2-3L@home): *Acute on chronic hypoxic respiratory failure: -4L in ED, *Neuropathy: *Hypothyroidism Discharge diagnosis: pmeumnia concern for aspiration COPD hypoxic respiratory failure Secondary discharge diagnosis: Neuropathy hypothyroidism Time Spent with Patient Time attestation: Total time spent providing and/or coordinating discharge services: Time spent: Greater than 30 minutes EXAM Constitutional Vitals: Temp Pulse Resp BP Pulse Ox 97.6 F 75 16 127/70 99 05/14/20 12:19 05/14/20 12:19 05/14/20 12:19 05/14/20 12:19 05/14/20 12:19 Discharge Data Data Completed and Pending Labs on day of discharge: Labs from last 24 hours 05/13/20 05/13/20 05/13/20 21:19 20:15 20:15 WBC RBC Hgb Hct POC Hct MCV MCH MCHC RDW Plt Count MPV Neut % (Auto) Lymph % (Auto) [place] % (Auto) Eos % (Auto) Baso % (Auto) Lymph # (Auto) [place] # (Auto) Eos # (Auto) Baso # (Auto) Seg Neutrophils % Band Neutrophils % Lymphocytes % Monocytes % (Manual) Eosinophils % (Manual) Basophils % (Manual) Absolute Neutrophils Reactive Lymphocytes Platelet Estimate RBC Morphology Polychromasia VBG Lactic Acid 0.8 POC Sodium Sodium POC Potassium Potassium POC Chloride Chloride Carbon Dioxide POC Total CO2 Anion Gap POC BUN BUN Creatinine POC Creatinine GFR Calculation Glucose POC Glucose Calcium POC WB Ioniz Calcium Total Bilirubin AST ALT Alkaline Phosphatase Troponin T C-Reactive Protein 9.30 H NT-Pro-B Natriuret Pep Total Protein Albumin Globulin Albumin/Globulin Ratio Procalcitonin 0.17 H 05/13/20 05/13/20 05/13/20 20:15 20:15 20:15 WBC RBC Hgb Hct POC Hct 36 L MCV MCH MCHC RDW Plt Count MPV Neut % (Auto) Lymph % (Auto) [place] % (Auto) Eos % (Auto) Baso % (Auto) Lymph # (Auto) [place] # (Auto) Eos # (Auto) Baso # (Auto) Seg Neutrophils % 69 Band Neutrophils % 4 Lymphocytes % 10 L Monocytes % (Manual) 8 Eosinophils % (Manual) 7 Basophils % (Manual) 1 Absolute Neutrophils Reactive Lymphocytes 1 Platelet Estimate Normal RBC Morphology Abnormal A Polychromasia 1+ A VBG Lactic Acid POC Sodium 136 Sodium 133 POC Potassium 4.9 Potassium 4.8 POC Chloride 101 Chloride 98 Carbon Dioxide 26 POC Total CO2 27 Anion Gap 9.0 POC BUN 16 BUN 15 Creatinine 1.0 POC Creatinine 1.0 GFR Calculation 67 Glucose 97 POC Glucose 103 Calcium 8.5 L POC WB Ioniz Calcium 1.09 L Total Bilirubin 0.3 AST 16 ALT 8 Alkaline Phosphatase 89 Troponin T < 0.01 C-Reactive Protein NT-Pro-B Natriuret Pep 1003.0 H Total Protein 7.4 Albumin 3.4 Globulin 4.0 H Albumin/Globulin Ratio 0.9 L Procalcitonin 05/13/20 20:15 WBC 9.6 RBC 3.96 L Hgb 11.5 L Hct 36.3 L POC Hct MCV 91.7 MCH 29.0 MCHC 31.7 RDW 13.0 Plt Count 232 MPV 9.8 Neut % (Auto) 69.8 Lymph % (Auto) 10.2 L [place] % (Auto) 11.6 Eos % (Auto) 8.0 H Baso % (Auto) 0.4 Lymph # (Auto) 0.98 L [place] # (Auto) 1.11 H Eos # (Auto) 0.77 H Baso # (Auto) 0.04 Seg Neutrophils % Band Neutrophils % Lymphocytes % Monocytes % (Manual) Eosinophils % (Manual) Basophils % (Manual) Absolute Neutrophils 6.70 Reactive Lymphocytes Platelet Estimate RBC Morphology Polychromasia VBG Lactic Acid POC Sodium Sodium POC Potassium Potassium POC Chloride Chloride Carbon Dioxide POC Total CO2 Anion Gap POC BUN BUN Creatinine POC Creatinine GFR Calculation Glucose POC Glucose Calcium POC WB Ioniz Calcium Total Bilirubin AST ALT Alkaline Phosphatase Troponin T C-Reactive Protein NT-Pro-B Natriuret Pep Total Protein Albumin Globulin Albumin/Globulin Ratio Procalcitonin Preliminary micro results at discharge 05/14/20 09:22 Gram Stain - Preliminary Sputum - Expectorated Sputum Culture - Preliminary Discharge Plan Patient/Caregiver Discharge Instructions Activity: increase activity as tolerated Diet: Regular Diet Prescriptions: New levofloxacin 750 mg tablet 750 mg PO Q24H Qty: 4 RF: 0 prednisone 10 mg tablet 40 mg PO QDAY Qty: 1 RF: 0 Continued ipratropium-albuterol 0.5 mg-3 mg(2.5 mg base)/3 mL solution for nebulization 3 ml INHALATION QID RF: 0 albuterol sulfate 90 mcg/actuation HFA aerosol inhaler 2 puff INHALATION .Q4-6H PRN (Reason: Shortness Of Breath) RF: 0 budesonide-formoterol 160-4.5 mcg/actuation HFA aerosol inhaler 2 puff INHALATION BID RF: 0 finasteride 5 mg tablet 5 mg PO QDAY RF: 0 gabapentin 400 mg capsule 400 mg PO BID RF: 0 levothyroxine 25 mcg tablet 25 mcg PO QDAY RF: 0 tamsulosin 0.4 mg capsule 0.4 mg PO QDAY RF: 0 tiotropium bromide 2.5 mcg/actuation mist 2 puff INHALATION BID RF: 0 Follow Up Plan Follow up with: Edwin Jones ARNP [Primary Care Provider] - Patient Disposition: Home, Self-Care Rehab Potential: Fair Overall status at discharge: patient is progressing back to baseline QUALITY VTE Deep Vein Thrombosis/Pulmonary Embolism Present on Admission: No
[2020-05-14] MEDS: cefTRIAXone 2 GM in DEXTROSE 5% IN WATER 50 ML IV SCH (13:17)
[2020-05-14] MEDS: 0.9 % SODIUM CHLORIDE 10 ML SYRINGE IV SCH ×2 (13:17→20:39)
[2020-05-14] MEDS: DOCUSATE SODIUM 100 MG CAPSULE PO SCH (20:39)
[2020-05-15] MEDS: IPRATROPIUM/ALBUTEROL 3 ML AMPUL.NEB NEB SCH ×3 (00:33→13:29)
[2020-05-15] MEDS: 0.9 % SODIUM CHLORIDE 10 ML SYRINGE IV SCH ×2 (06:01→15:28)
[2020-05-15 08:08] LABS: Basophils # (Auto) 0.01 K/mcL (0.00-0.20); Basophils % (Auto) 0.1 % (0.0-2.0); Eosinophils # (Auto) 0 K/mcL (0.00-0.70); Eosinophils % (Auto) 0 % (0.0-7.0); Hematocrit 32.7 % (41.0-55.0); Hemoglobin 10.5 g/dL (13.5-16.5); Lymphocytes # (Auto) 0.46 K/mcL (1.50-4.80); Lymphocytes % (Auto) 3.9 % (15.0-49.0); Mean Cell Volume 90.1 fL (80.0-100.0); Mean Corpuscular HGB Conc 32.1 g/dL (31.0-36.0); Mean Platelet Volume 9.9 fL (7.4-10.4); Monocytes # (Auto) 0.53 K/mcL (0.10-0.90); Monocytes % (Auto) 4.4 % (1.0-12.0); Neutrophils % (Auto) 91.6 % (38.0-78.0); Platelet Count 229 K/mcL (140-440); RBC 3.63 M/mcL (4.50-5.90); Red Cell Distribution Width 12.9 % (11.5-14.5); WBC 11.9 K/mcL (4.5-11.0)
[2020-05-15 08:25] LABS: ALT/SGPT 7 U/L (<40); AST/SGOT 12 U/L (<40); Albumin 2.8 gm/dL (3.2-5.2); Albumin/Globulin Ratio 0.7 (1.0-2.3); Alkaline Phosphatase 74 U/L (39-117); Bilirubin,Direct < 0.2 mg/dL (0-0.3); Bilirubin,Total 0.2 mg/dL (0.1-1.0); Blood Urea Nitrogen 25 mg/dL (8-23); Calcium 8.4 mg/dL (8.6-10.4); Carbon Dioxide 29 mmol/L (22-30); Chloride 100 mmol/L (96-108); Globulin 3.9 gm/dL (2.2-3.7); Glomerular Filtration Rate 59; Glucose 195 mg/dL (70-105); Lactate Dehydrogenase 175 U/L (135-225); Phosphorous 3.4 mg/dL (2.5-4.5); Triglycerides 44 mg/dL (<150); Uric Acid 5.2 mg/dL (2.5-8.0)
[2020-05-15] MEDS ORDERED: ENOXAPARIN 40 MG/0.4 ML SYRINGE SQ SCH (09:00)
[2020-05-15] MEDS: AZITHROMYCIN 500 MG in DEXTROSE 5% IN WATER 250 ML IV SCH (10:32)
[2020-05-15] MEDS: DOCUSATE SODIUM 100 MG CAPSULE PO SCH (10:33)
[2020-05-15] MEDS: cefTRIAXone 2 GM in DEXTROSE 5% IN WATER 50 ML IV SCH (10:33)
[2020-05-16] MEDS ORDERED: predniSONE 20 MG TABLET PO SCH (08:00)
== END 2020-05-15 14:35 | disposition home or self-care (01) | DRG 190 ==
LOC: ED 19:46 → ICU 05-14 02:04 → MEDSUR 05-14 13:35
PROVIDERS: ADMIT Internal Medicine; ATTEND Internal Medicine